=== PATIENT | female | born 1950 | race Caucasian/White ===

== ENCOUNTER 2016-04-06 23:17 | Emergency (ER) | payer MEDICARE ==
[2016-04-06] MEDS ORDERED: ONDANSETRON 4 MG/2 ML VIAL IVP STA (23:58)
[2016-04-06] MEDS ORDERED: SODIUM CHLORIDE 0.9% 1,000 ML IV STA (23:58)
[2016-04-07 00:17] LABS: Basophils % (A) 0 %; CH 32.8; CHCM 35.2; Eosinophils # (A) 0.1 k/uL (0-0.7); Eosinophils % (A) 1 %; HCT 39.5 % (34.0-46.0); HDW 2.59; HGB 13.4 gm/dL (11.4-16.0); Luc # (Auto) 0.17; Luc % (Auto) 3; Lymphocytes # (A) 1.2 k/uL (1.0-4.8); Lymphocytes % (A) 18 %; MCH 31.7 pg (25.0-35.0); MCHC 33.9 g/dL (31.0-37.0); MCV 93.5 fL (80.0-100.0); Mean Platelet Volume 7.2; Monocytes # (A) 0.5 k/uL (0-1.0); Monocytes % (A) 8 %; Neutrophils # (A) 4.6 k/uL (1.3-7.7); Neutrophils % (A) 70 %; RBC 4.22 m/uL (3.80-5.40); RDW 12.1 % (11.5-15.5); WBC 6.5 k/uL (3.8-10.6); WBC (Perox) 6.82
[2016-04-07 00:27] LABS: ALT 48 U/L (9-52); AST 45 U/L (14-36); Alkaline Phosphatase 113 U/L (38-126); Anion Gap 12 mmol/L; Blood Urea Nitrogen 14 mg/dL (7-17); Calcium 9.1 mg/dL (8.4-10.2); Carbon Dioxide 24 mmol/L (22-30); Chloride 105 mmol/L (98-107); Glucose 121 mg/dL (74-99); Non-African American GFR(MDRD) >60 (>60 ml/min/1.73 sqM); Sodium 141 mmol/L (137-145); Total Bilirubin 0.4 mg/dL (0.2-1.3); Total Protein 6.7 g/dL (6.3-8.2)
--- NOTE | 2016-04-07 00:27 | XR ---
EXAMINATION TYPE: XR chest 2V DATE OF EXAM: 04/07/2016 12:15 AM COMPARISON: NONE HISTORY: Syncope. Possible pneumonia. TECHNIQUE: Frontal and lateral views of the chest are obtained. FINDINGS: Heart and mediastinum are normal for age. Lungs are clear. Costophrenic angles are clear. There are no hilar masses. There are chest leads. Bony thorax is intact. Thoracic aorta is atheromato us. IMPRESSION: No active cardiopulmonary disease.
--- NOTE | 2016-04-07 00:28 | CT ---
EXAMINATION TYPE: CT brain wo con DATE OF EXAM: 04/07/2016 12:24 AM COMPARISON: NONE HISTORY: Near syncope CT DLP: 1144.70 mGycm Automated exposure control for dose reduction was used. FINDINGS: Ventricles and sulci are normal for age. There is no mass effect nor midline shift. There is no sign of intracranial hemorrhage. The calvarium is intact. IMPRESSION: Negative unenhanced head CT scan.
[2016-04-07 00:44] LABS: Appearance,Urine Clear (Clear); Bilirubin,Urine Negative (Negative); Glucose,Urine (UA) Negative (Negative); Ketones,Urine Negative (Negative); Leukocyte Esterase,Urine Negative (Negative); Nitrite,Urine Negative (Negative); PH, Urine 6.5 (5.0-8.0); Protein,Urine Negative (Negative); UA Billing (MACRO vs. MICRO) CHEM; Urobilinogen,Urine <2.0 mg/dL (<2.0)
[2016-04-07 00:49] LABS: Specific Gravity,Urine 1.002 (1.001-1.035)
--- NOTE | 2016-04-07 01:07 | ED ---
Dizziness HPI - General Chief Complaint: Dizziness Stated Complaint: Near Syncope Time Seen by Provider: 04/06/16 23:47 Source: patient, EMS Mode of arrival: EMS - History of Present Illness Initial Comments: She was sitting at home at 10:30 PM tonight watching TV she felt like a bit of a palpitations and she felt she was given a pass this feeling lasted for less than a minute and then it she did passed no chest pain no shortness of breath no pleuritic chest pain no nausea no vomiting no diaphoresis no headache no blurred vision, numbness of the review of system is unremarkable - Related Data Home Medications Medication Instructions Recorded Confirmed Aspirin EC [Ecotrin Low Dose] 81 mg PO HS 04/06/16 04/06/16 Ibuprofen [Advil] 200 mg PO DAILY PRN 04/06/16 04/06/16 Meclizine [Antivert] 12.5 mg PO TID PRN 04/06/16 04/06/16 Multivitamins, Thera [Multivitamin] 1 tab PO DAILY 04/06/16 04/06/16 Allergies Allergy/AdvReac Type Severity Reaction Status Date / Time Penicillins Allergy Rash/Hives Verified 04/06/16 23:48 Sulfa (Sulfonamide Allergy Rash/Hives Verified 04/06/16 23:48 Antibiotics) Review of Systems ROS Statement: Those systems with pertinent positive or pertinent negative responses have been documented in the HPI. ROS Other: All systems not noted in ROS Statement are negative. Past Medical History Past Medical History: Hyperlipidemia, Hypertension History of Any Multi-Drug Resistant Organisms: None Reported Additional Past Surgical History / Comment(s): D&C Past Psychological History: No Psychological Hx Reported Smoking Status: Never smoker Past Alcohol Use History: Rare Past Drug Use History: None Reported General Exam - General Exam Comments Initial Comments: General: The patient is awake and alert, in no distress, and does not appear acutely ill. GCS is 15 Skin: Skin is warm and dry and no rashes or lesions are noted. Eye: Pupils are equal, round and reactive to light, extra-ocular movements are intact; there is normal conjunctiva bilaterally. Ears, nose, mouth and throat: There are moist mucous membranes and no oral lesions. Neck: The neck is supple, there is no tenderness or JVD. Cardiovascular: There is a regular rate and rhythm. No murmur, rub or gallop is appreciated. Respiratory: To auscultation bilateral, no wheezing no rhonchi no distress respiratory bolaños noticed Gastrointestinal: Soft, non-distended, non-tender abdomen without masses or organomegaly noted. There is no rebound or guarding present. Bowel sounds are unremarkable. Back: There is no tenderness to palpation in the midline. There is no obvious deformity. Musculoskeletal: Normal ROM, no tenderness, There is no pedal edema. There is no calf tenderness or swelling. No cords were appreciated. Neurological: CN II-XII intact, Cranial nerves III through XII are intact. There are no obvious motor or sensory deficits. Coordination appears grossly intact. Speech is normal. Psychiatric: Cooperative, appropriate mood & affect, normal judgment. Course Vital Signs 04/06/16 04/06/16 04/07/16 23:34 23:51 00:30 Temperature 99.3 F 99.1 F Pulse Rate 103 H 105 H 102 H Respiratory 18 18 16 Rate Blood Pressure 182/87 157/74 179/89 O2 Sat by Pulse 98 99 96 Oximetry 04/07/16 04/07/16 01:58 03:22 Temperature 98.0 F 99.0 F Pulse Rate 101 H 96 Respiratory 16 18 Rate Blood Pressure 154/67 154/68 O2 Sat by Pulse 96 97 Oximetry He was reassessed at 4 AM, her CBC, CMP, troponin, EKG, urinalysis, chest x-ray , head CT or. SHE HAS NO HEADACHES NO CHEST PAIN NO SHORTNESS OF BREATH NO PRESYNCOPAL EPISODES AND SHE WANTS TO GO HOME EKG Findings - EKG Comments: EKG Findings:: EKG sinus tachycardia heart rate is 107 RI interval is 166 QRS duration is 86 QT/QTc is 348/464 review of this EKG reveals no ST elevation or ST depression Medical Decision Making - Lab Data Result diagrams: 04/06/16 23:45 04/06/16 23:45 Lab Results 04/06/16 04/06/16 04/06/16 Range/Units 23:43 23:45 23:45 WBC 6.5 (3.8-10.6) k/uL RBC 4.22 (3.80-5.40) m/uL Hgb 13.4 (11.4-16.0) gm/dL Hct 39.5 (34.0-46.0) % MCV 93.5 (80.0-100.0) fL MCH 31.7 (25.0-35.0) pg MCHC 33.9 (31.0-37.0) g/dL RDW 12.1 (11.5-15.5) % Plt Count 213 (150-450) k/uL Neutrophils % 70 % Lymphocytes % 18 % Monocytes % 8 % Eosinophils % 1 % Basophils % 0 % Neutrophils # 4.6 (1.3-7.7) k/uL Lymphocytes # 1.2 (1.0-4.8) k/uL Monocytes # 0.5 (0-1.0) k/uL Eosinophils # 0.1 (0-0.7) k/uL Basophils # 0.0 (0-0.2) k/uL Sodium 141 (137-145) mmol/L Potassium 4.0 (3.5-5.1) mmol/L Chloride 105 (98-107) mmol/L Carbon Dioxide 24 (22-30) mmol/L Anion Gap 12 mmol/L BUN 14 (7-17) mg/dL Creatinine 0.80 (0.52-1.04) mg/dL Est GFR (MDRD) Af Amer >60 (>60 ml/min/1.73 sqM) Est GFR (MDRD) Non-Af >60 (>60 ml/min/1.73 sqM) Glucose 121 H (74-99) mg/dL Calcium 9.1 (8.4-10.2) mg/dL Total Bilirubin 0.4 (0.2-1.3) mg/dL AST 45 H (14-36) U/L ALT 48 (9-52) U/L Alkaline Phosphatase 113 (38-126) U/L Troponin I (0.000-0.034) ng/mL Total Protein 6.7 (6.3-8.2) g/dL Albumin 4.1 (3.5-5.0) g/dL Urine Color Colorless Urine Appearance Clear (Clear) Urine pH 6.5 (5.0-8.0) Ur Specific [place] 1.002 (1.001-1.035) Urine Protein Negative (Negative) Urine Glucose (UA) Negative (Negative) Urine Ketones Negative (Negative) Urine Blood Negative (Negative) Urine Nitrate Negative (Negative) Urine Bilirubin Negative (Negative) Urine Urobilinogen <2.0 (<2.0) mg/dL Ur Leukocyte Esterase Negative (Negative) 04/06/16 Range/Units 23:45 WBC (3.8-10.6) k/uL RBC (3.80-5.40) m/uL Hgb (11.4-16.0) gm/dL Hct (34.0-46.0) % MCV (80.0-100.0) fL MCH (25.0-35.0) pg MCHC (31.0-37.0) g/dL RDW (11.5-15.5) % Plt Count (150-450) k/uL Neutrophils % % Lymphocytes % % Monocytes % % Eosinophils % % Basophils % % Neutrophils # (1.3-7.7) k/uL Lymphocytes # (1.0-4.8) k/uL Monocytes # (0-1.0) k/uL Eosinophils # (0-0.7) k/uL Basophils # (0-0.2) k/uL Sodium (137-145) mmol/L Potassium (3.5-5.1) mmol/L Chloride (98-107) mmol/L Carbon Dioxide (22-30) mmol/L Anion Gap mmol/L BUN (7-17) mg/dL Creatinine (0.52-1.04) mg/dL Est GFR (MDRD) Af Amer (>60 ml/min/1.73 sqM) Est GFR (MDRD) Non-Af (>60 ml/min/1.73 sqM) Glucose (74-99) mg/dL Calcium (8.4-10.2) mg/dL Total Bilirubin (0.2-1.3) mg/dL AST (14-36) U/L ALT (9-52) U/L Alkaline Phosphatase (38-126) U/L Troponin I <0.012 (0.000-0.034) ng/mL Total Protein (6.3-8.2) g/dL Albumin (3.5-5.0) g/dL Urine Color Urine Appearance (Clear) Urine pH (5.0-8.0) Ur Specific [place] (1.001-1.035) Urine Protein (Negative) Urine Glucose (UA) (Negative) Urine Ketones (Negative) Urine Blood (Negative) Urine Nitrate (Negative) Urine Bilirubin (Negative) Urine Urobilinogen (<2.0) mg/dL Ur Leukocyte Esterase (Negative) Disposition Clinical Impression: Pre-syncope Disposition: HOME SELF-CARE Condition: Good Instructions: Dizziness (ED) Referrals: Noam Hernandez MD [Primary Care Provider] - 1-2 days
[2016-04-07 04:22] VITALS: BP 145/63; PULSE 92; RESP 20; TEMP 97.3
== END 2016-04-07 04:23 | disposition home or self-care (01) ==
LOC: EC 23:17
DX: R55 Syncope and collapse (principal); Z79.82 Long term (current) use of aspirin; Z88.0 Allergy status to penicillin; Z88.2 Allergy status to sulfonamides
CPT/HCPCS: 36415; 70450; 71020; 80053; 81003; 84484; 85025; 93005; 96360; 96361; 99285

== ENCOUNTER → 2016-06-23 | Outpatient (CLI) | payer MEDICARE ==
--- NOTE | 2016-06-24 13:24 | MM ---
Reason for exam: screening (asymptomatic). Last mammogram was performed 1 year ago. History: Patient is postmenopausal and is nulliparous. Benign left US cyst aspiration of the left breast, June 06, 2010. Benign excisional biopsy of the left breast, April 05, 1998. Cyst aspiration of the left breast. Took estrogen for 1 year beginning at age 46. Took progesterone for 1 year beginning at age 46. Physical Findings: A clinical breast exam by your physician is recommended on an annual basis and results should be correlated with mammographic findings. MG 3D Screening Mammo W/Cad Bilateral CC and MLO view(s) were taken. Prior study comparison: June 21, 2015, bilateral MG 3d screening mammo w/cad. June 19, 2014, bilateral MG screening mammo w CAD. There are scattered fibroglandular densities. No significant changes when compared with prior studies. ASSESSMENT: Benign, BI-RAD 2 RECOMMENDATION: Routine screening mammogram of both breasts in 1 year.
== END | disposition home or self-care (01) ==
LOC: RADMAMWWP 08:11
PROVIDERS: ATTEND Family Medicine
DX: Z12.31 Encounter for screening mammogram for malignant neoplasm of breast (principal)
CPT/HCPCS: 77063; G0202

== ENCOUNTER → 2016-11-02 | Outpatient (CLI) | payer MEDICARE ==
--- NOTE | 2016-11-02 10:18 | US ---
EXAMINATION TYPE: US abdomen complete DATE OF EXAM: 11/02/2016 COMPARISON: NONE CLINICAL HISTORY: Abd Pain, R10.84, [id number]. Epigastric pain x 2 months EXAM MEASUREMENTS: Liver Length: 13.7 cm Gallbladder Wall: 0.2 cm CBD: 0.7 cm Spleen: 9.6 cm Right Kidney: 10.2 x 3.9 x 4.9 cm Left Kidney: 9.9 x 4.8 x 4.6 cm Pancreas: wnl Liver: wnl Gallbladder: 9mm non-mobile gallstone near neck Evidence for sonographic Mehta's sign: No CBD: wnl Spleen: wnl Right Kidney: wnl Left Kidney: wnl Upper IVC: wnl Abd Aorta: wnl, wall calcifications visualized IMPRESSION: 1. 9 mm hyperechoic focus within the gallbladder. Differential diagnosis includes nonmobile stone willi chidi cholesterol polyp.
== END | disposition home or self-care (01) ==
LOC: RADUSWWP 09:32
PROVIDERS: ATTEND Family Medicine
DX: R93.2 Abnormal findings on diagnostic imaging of liver and biliary tract (principal); R10.84 Generalized abdominal pain
CPT/HCPCS: 76700

== ENCOUNTER → 2017-03-23 | Outpatient (CLI) | payer MEDICARE ==
--- NOTE | 2017-03-23 12:15 | NM ---
EXAMINATION TYPE: NM stress cardiolite complete DATE OF EXAM: 03/23/2017 COMPARISON: NONE HISTORY: Atypical chest pain TECHNIQUE: After the intravenous administration of 10.5 mCi Tc 99m Sestamibi - Rest images obtained 45 minutes post injection. The patient exercised using a PARISH protocol and 1 minute prior to peak exercise was injected with 28.6 mCi Tc 99m Sestamibi - Stress images obtained 10 minutes post injecti on. FINDINGS: Targeted heart rate was achieved during performance of the study. Review of stress and rest SPECT rita ges demonstrates no distinct perfusion abnormality. Gated analysis shows normal wall motion with an estimated left ventricular ejection fraction of 69 %. IMPRESSION: No scintigraphic evidence for reversible ischemia
--- NOTE | 2017-03-23 12:54 | EST ---
EXERCISE STRESS DATE OF SERVICE: 03/23/2017 AGE: 66 SEX: Female HT: 5'4" WT: 184 PROTOCOL: Neeraj Cardiolite STAGE: I DURATION OF EXERCISE: 5:16 HEART RATE REST: 69 BLOOD PRESSURE REST: 140/82 MAXIMUM HEART RATE ACHIEVED: 140 MAXIMUM BLOOD PRESSURE: 205/80 85% MPHR: 129 100% MPHR: 152 METS: 7.1 INDICATIONS: Chest pain. CLINICAL INFORMATION: Baseline EKG revealed normal sinus rhythm without significant ST-T changes. Patient walked for 5 minutes 16 seconds, achieved a maximal heart rate of 140 beats per minute which is more than 85% of predicted maximal. She developed some fatigue and shortness of breath but did not have any angina. There was no arrhythmia. By EKG criteria, this is a negative stress test with nonspecific upsloping ST-segment changes without any symptoms of angina or any arrhythmia. The nuclear scan results which are more pertinent, will be reported by the radiologist. FINAL IMPRESSION: Limited exercise capacity with a negative stress test by EKG criteria with nonspecific upsloping ST-segment changes and no angina or arrhythmia. The nuclear scan results, which are more pertinent, will be reported by the radiologist. MMODL / IJN: [id number] /
== END | disposition home or self-care (01) ==
LOC: RADNMMAIN 08:39
PROVIDERS: ATTEND Family Medicine
DX: R07.89 Other chest pain (principal)
CPT/HCPCS: 93017; 78452; A9500

== ENCOUNTER → 2017-04-14 | Outpatient (CLI) | payer MEDICARE ==
--- NOTE | 2017-04-14 15:45 | XR ---
EXAMINATION TYPE: XR chest 2V DATE OF EXAM: 04/14/2017 COMPARISON: Prior chest x-ray 04/07/2016 HISTORY: Cough TECHNIQUE: Frontal and lateral views of the chest are obtained. FINDINGS: There is no focal air space opacity, pleural effusion, or pneumothorax seen. The cardiac silhouette size is within normal limits and stable. Patient is rotated. The aorta is dense. The osse ous structures are intact. IMPRESSION: No acute cardiopulmonary process.
== END | disposition home or self-care (01) ==
LOC: RADXRMAIN 14:03
PROVIDERS: ATTEND Family Medicine
DX: R05 Cough (principal)
CPT/HCPCS: 71046

== ENCOUNTER → 2017-05-12 | Outpatient (CLI) | payer MEDICARE ==
[2017-05-12 18:32] LABS: Anion Gap 11 mmol/L; Blood Urea Nitrogen 15 mg/dL (7-17); Calcium 9.6 mg/dL (8.4-10.2); Carbon Dioxide 27 mmol/L (22-30); Chloride 103 mmol/L (98-107); Glucose 97 mg/dL (74-99); Potassium 4.2 mmol/L (3.5-5.1); Sodium 141 mmol/L (137-145)
== END | disposition home or self-care (01) ==
LOC: LABMAIN 18:04
PROVIDERS: ATTEND Family Medicine
DX: I10 Essential (primary) hypertension (principal)
CPT/HCPCS: 36415; 80048

== ENCOUNTER → 2017-06-08 | Outpatient (CLI) | payer MEDICARE ==
[2017-06-08 10:01] LABS: ALT 45 U/L (9-52); AST 41 U/L (14-36); Alkaline Phosphatase 110 U/L (38-126); Anion Gap 10 mmol/L; Blood Urea Nitrogen 12 mg/dL (7-17); Calcium 9.4 mg/dL (8.4-10.2); Carbon Dioxide 27 mmol/L (22-30); Chloride 102 mmol/L (98-107); Cholesterol 241 mg/dL (<200); Glucose 95 mg/dL (74-99); HDL Cholesterol 85 mg/dL (40-60); LDL Cholesterol,Calculated 139 mg/dL (0-99); Potassium 3.8 mmol/L (3.5-5.1); Sodium 139 mmol/L (137-145); Total Bilirubin 0.4 mg/dL (0.2-1.3); Total Protein 6.7 g/dL (6.3-8.2); Triglycerides 84 mg/dL (<150)
[2017-06-08 10:15] LABS: Basophils % (A) 1 %; Eosinophils % (A) 1 %; HCT 38.5 % (34.0-46.0); HGB 13.5 gm/dL (11.4-16.0); Lymphocytes # (A) 1.1 k/uL (1.0-4.8); Lymphocytes % (A) 30 %; MCH 32.4 pg (25.0-35.0); MCHC 35.1 g/dL (31.0-37.0); MCV 92.2 fL (80.0-100.0); Mean Platelet Volume 6.8; Monocytes # (A) 0.3 k/uL (0-1.0); Monocytes % (A) 8 %; Neutrophils % (A) 57 %; Platelet Count 212 k/uL (150-450); RBC 4.17 m/uL (3.80-5.40); RDW 12.2 % (11.5-15.5); WBC 3.6 k/uL (3.8-10.6)
== END | disposition home or self-care (01) ==
LOC: LABWHC1 08:56
PROVIDERS: ATTEND Family Medicine
DX: E78.5 Hyperlipidemia, unspecified (principal); I10 Essential (primary) hypertension
CPT/HCPCS: 36415; 80053; 80061; 85025

== ENCOUNTER 2018-02-28 22:11 | Inpatient (IN) | payer MEDICARE ==
[2018-02-28 22:57] LABS: Basophils % (A) 0 %; Eosinophils # (A) 0.1 k/uL (0-0.7); Eosinophils % (A) 1 %; HCT 37.4 % (34.0-46.0); HGB 12.7 gm/dL (11.4-16.0); Lymphocytes # (A) 2.1 k/uL (1.0-4.8); Lymphocytes % (A) 30 %; MCH 31.9 pg (25.0-35.0); MCV 93.9 fL (80.0-100.0); Mean Platelet Volume 6.5; Monocytes # (A) 0.5 k/uL (0-1.0); Monocytes % (A) 7 %; Neutrophils # (A) 4.1 k/uL (1.3-7.7); Neutrophils % (A) 57 %; Platelet Count 284 k/uL (150-450); RBC 3.98 m/uL (3.80-5.40); RDW 12.3 % (11.5-15.5); WBC 7.1 k/uL (3.8-10.6)
[2018-02-28 23:02] LABS: Partial Thromboplastin Time 23.2 sec (22.0-30.0); Prothrombin Time 9.6 sec (9.0-12.0)
[2018-02-28 23:03] LABS: ALT 40 U/L (9-52); AST 31 U/L (14-36); Albumin 4.3 g/dL (3.5-5.0); Alkaline Phosphatase 127 U/L (38-126); Anion Gap 12 mmol/L; Blood Urea Nitrogen 12 mg/dL (7-17); Calcium 9.7 mg/dL (8.4-10.2); Carbon Dioxide 23 mmol/L (22-30); Chloride 104 mmol/L (98-107); Glucose 117 mg/dL (74-99); Sodium 139 mmol/L (137-145); Total Bilirubin 0.3 mg/dL (0.2-1.3); Total Protein 7.4 g/dL (6.3-8.2)
--- NOTE | 2018-02-28 23:36 | CT ---
EXAM: CT Head Without Intravenous Contrast CLINICAL HISTORY: ITS.REASON CT Reason: Pain TECHNIQUE: Axial computed tomography images of the head/brain without intravenous contrast. CTDI is 54 mGy and DLP is 354 mGy-cm. This CT exam was performed using one or more of the following dose reduction techniques: automated exposure control, adjustment of the mA and/or kV according to patient size, and/or use of iterative reconstruction technique. COMPARISON: No relevant prior studies available. FINDINGS: Brain: No hemorrhage. No edema. Ventricles: Unremarkable. No ventriculomegaly. Bones/joints: No acute fracture. Soft tissues: Unremarkable. Sinuses: No fluid levels. Mastoid air cells: Unremarkable as visualized. No mastoid effusion. IMPRESSION: No acute intracranial findings
--- NOTE | 2018-02-28 23:42 | ED ---
General Adult HPI - General Source: EMS Mode of arrival: EMS Limitations: no limitations <Jennifer Davalos - Last Filed: 03/01/18 03:58> <Rachell Fallon - Last Filed: 03/02/18 02:46> - General Chief complaint: Neuro Symptoms/Deficit Stated complaint: Hypertension, Weakness - History of Present Illness Initial comments: 67-year-old female past medical history of hypertension and HLD presenting today for chief complaint of left hand tingling and speech changes x 3 hours. Patient states that around 7:00 PM she states she began noticing tingling in her hand, shortly after she began noticing she had difficulty with speech, she states he felt as though her speech was slower than normal. Patient states that this was occurring while speaking to EMS. Patient states that after she finished the phone call with EMS all symptoms resolved. Upon arrival patient denies any current symptoms. Patient denies any ataxia, muscle weakness, visual changes, facial asymmetry, difficulty swallowing, sensation differences, paresthesias, chest pain, shortness of breath, headache or dizziness, nausea, vomiting. Patient denies any recent trauma to the head. Patient denies any symptoms prior to today. Patient denies any fever, chills, confusion, agitation. Remainder of ROS negative, upon arrival patient's blood pressure elevated, pt well appearing AAOx4. NIH 0. (Jennifer Davalos) - Related Data Home Medications Medication Instructions Recorded Confirmed Aspirin EC [Ecotrin Low Dose] 81 mg PO HS 04/06/16 02/28/18 Multivitamins, Thera [Multivitamin] 1 tab PO DAILY 04/06/16 02/28/18 Atorvastatin Calcium [Lipitor] 10 mg PO HS 02/28/18 02/28/18 Azithromycin [Zithromax Z-pack] See Taper PO DAILY 02/28/18 02/28/18 Losartan [Cozaar] 50 mg PO AC-SUPPER 02/28/18 02/28/18 amLODIPine [Norvasc] 2.5 mg PO AC-SUPPER 02/28/18 02/28/18 Allergies Allergy/AdvReac Type Severity Reaction Status Date / Time Penicillins Allergy Rash/Hives Verified 02/28/18 22:48 Sulfa (Sulfonamide Allergy Rash/Hives Verified 02/28/18 22:48 Antibiotics) Review of Systems ROS Other: All systems not noted in ROS Statement are negative. Constitutional: Denies: fever, chills, night sweats Eyes: Denies: eye pain, vision change ENT: Denies: ear pain, throat pain Respiratory: Denies: cough, dyspnea, wheezes, hemoptysis, stridor Cardiovascular: Denies: chest pain, palpitations Endocrine: Denies: fatigue Gastrointestinal: Denies: abdominal pain, nausea, vomiting, diarrhea, constipation, hematemesis Genitourinary: Denies: urgency, dysuria, frequency, hematuria, discharge Skin: Denies: rash, lesions Neurological: Reports: paresthesias (of the left hand), other (speech changes). Denies: headache, weakness, numbness, confusion, abnormal gait <Jennifer Davalos - Last Filed: 03/01/18 03:58> ROS Other: All systems not noted in ROS Statement are negative. <Rachell Fallon P - Last Filed: 03/02/18 02:46> ROS Statement: Those systems with pertinent positive or pertinent negative responses have been documented in the HPI. Past Medical History Past Medical History: Hyperlipidemia, Hypertension History of Any Multi-Drug Resistant Organisms: None Reported Additional Past Surgical History / Comment(s): D&C Past Psychological History: No Psychological Hx Reported Smoking Status: Never smoker Past Alcohol Use History: Rare Past Drug Use History: None Reported <Jennifer Davalos - Last Filed: 03/01/18 03:58> - Past Family History Mother Additional Family Medical History / Comment(s): alzheimers, CABG Father Additional Family Medical History / Comment(s): smoker, alcohol. <Rachell Fallon P - Last Filed: 03/02/18 02:46> General Exam Limitations: no limitations <Jennifer Davalos - Last Filed: 03/01/18 03:58> <Rachell Fallon P - Last Filed: 03/02/18 02:46> - General Exam Comments Initial Comments: General: The patient is awake and alert, in no distress, and does not appear acutely ill. Eye: Pupils are equal, round and reactive to light, extra-ocular movements are intact. No nystagmus. There is normal conjunctiva bilaterally. No signs of icterus. Ears, nose, mouth and throat: There are moist mucous membranes and no oral lesions. Neck: The neck is supple, there is no tenderness or JVD. No carotid artery bruits. Cardiovascular: There is a regular rate and rhythm. No murmur, rub or gallop is appreciated. Respiratory: Lungs are clear to auscultation, respirations are non-labored, breath sounds are equal. No wheezes, stridor, rales, or rhonchi. Gastrointestinal: Soft, non-distended, non-tender abdomen without masses or organomegaly noted. There is no rebound or guarding present. Musculoskeletal: Normal ROM, no tenderness. Strength 5/5. Sensation intact. Radial pulses equal bilaterally 2+. Neurological: A&O x 3. CN II-XII intact, memory intact to immediately, intermediate and custodial recall. Able to follow simple verbal. Able to name a common object (pen). High quality, labial (pa) and lingual (la) speech. Low quality posterior pharynx/larynx (ga) voice sounds. Able to express general knowledge (days in a week). No hemineglect or inattention noted. Finger agnosia (-) and spatially oriented (identified L index finger touched R shoulder with L index finger). . Light touch and temperature sensation present over the face, chest, abdomen, back, UE bilaterally, and LE bilaterally. Able to localize point during point localization b/l and extinction. No visible bulk atrophy, hypertrophy, fasciculations, or myoclonus of the UE or LE b/l. Full PROM in UE and LE b/l. Bilateral muscle strength 5/5 for the following muscles: deltoid, biceps, triceps, brachioradialis, wrist extensors/flexor, hip flexor, hip abductors/adductors, hamstrings, quadriceps, feet dorsiflexors/plantar flexors. Finger to nose, finger to the examiners finger, and heel to stubbs coordinated and accurate b/l. Coordinated and even demonstration of hand flip, finger to thumb, and toe tap b/l. (-) pronator drift. No nuchal rigidity. (-) Brudzinskis and Kernig signs.. Skin: Skin is warm and dry and no rashes or lesions are noted. Lower extremity edema Psychiatric: Cooperative, appropriate mood & affect, normal judgment. (Jennifer Davalos L) Course <Jennifer Davalos - Last Filed: 03/01/18 03:58> <Rachell Fallon - Last Filed: 03/02/18 02:46> Vital Signs 02/28/18 02/28/18 02/28/18 22:16 22:17 22:30 Temperature 98.3 F Pulse Rate 117 H Pulse Rate [ Publications Inspector ] Respiratory 20 16 Rate Blood Pressure 154/94 154/93 Blood Pressure [Right Arm] O2 Sat by Pulse 98 97 Oximetry 03/01/18 03/01/18 03/01/18 00:00 00:21 02:02 Temperature 98.1 F Pulse Rate 106 H 101 H Pulse Rate [ 99 Publications Inspector ] Respiratory 16 16 18 Rate Blood Pressure 168/106 160/89 Blood Pressure 164/83 [Right Arm] O2 Sat by Pulse 98 98 97 Oximetry 03/01/18 02:08 Temperature 98.3 F Pulse Rate Pulse Rate [ 102 H Publications Inspector ] Respiratory 17 Rate Blood Pressure Blood Pressure 144/83 [Right Arm] O2 Sat by Pulse 98 Oximetry - Reevaluation(s) Reevaluation #1: Repeat neurological exam, no focal neurological deficits. Patient denies any current symptoms. She given [address] following [address] without contrast. 03/01/18 (Jennifer Davalos) EKG Findings - EKG Comments: EKG Findings:: A 12-lead EKG was performed and shows the following: Rate is 100 bpm, and rhythm is normal sinus. There are normal QRS complexes and normal R- wave progression. ST segments have no elevation or depression, and [place] segments appear normal. [place] interval 166 most seconds, QRS duration 82 ms, QT/QTC 350/ 451 ms. Interpretted by [facility] [place] and [place]. Fallon <Jennifer Davalos - Last Filed: 03/01/18 03:58> Medical Decision Making - Lab Data Result diagrams: 02/28/18 22:35 02/28/18 22:35 <Jennifer Davalos - Last Filed: 03/01/18 03:58> - Lab Data Result diagrams: 02/28/18 22:35 02/28/18 22:35 <Rachell Fallon - Last Filed: 03/02/18 02:46> - Medical Decision Making 67-year-old presenting with complaints of history of difficulty speech and paresthesias of the left upper extremity concerning for TIA. NIH 0. Denies symptoms prior to arrival, stating they resolved about 1 hour ago. No focal neurological deficits on exam. Regular rhythm/rate. No carotid artery bruits. CT without contrast obtained, negative for acute intracranial process. Laboratory studies unremarkable. EKG within normal limits. Patient's blood pressure elevated upon arrival, improvement throughout the duration of visit. CTA obtained revealing possible occlusion of the posterior cerebral artery, stenosis versus occlusion of the proximal basilar. Pt given 325 mg ASA. Pt was evaluted by Dr. Hubbard. Stroke neurologist consulted at [facility] who spoke with attending physician Dr. Rachell Fallon. At this time given no neurosurgical intervention recommended/warranted. They recommended admission at facility to medicine and neurology consult. Dr. Sosa accepted patient. Neurology consulted. Pt agreeable with admission. (Jennifer Davalos) I personally saw and examined the patient. Patient with no focal neurologic deficits. I did discuss patient care with the stroke neurologist at [facility] who states that the basilar artery stenosis or occlusion is not consistent with the patient's presenting complaint, he would recommend aspirin, Plavix and admission to our hospital for evaluation by neurology. He doesn't feel the patient warrants any intervention therefore is stable to remain at this facility rather than be transferred. Patient care was discussed with Dr. Sosa of the [facility] who accepts the admission. Admission orders placed. (Rcahell Fallon) - Lab Data Lab Results 02/28/18 02/28/18 02/28/18 Range/Units 22:35 22:35 22:35 WBC 7.1 (3.8-10.6) k/uL RBC 3.98 (3.80-5.40) m/uL Hgb 12.7 (11.4-16.0) gm/dL Hct 37.4 (34.0-46.0) % MCV 93.9 (80.0-100.0) fL MCH 31.9 (25.0-35.0) pg MCHC 34.0 (31.0-37.0) g/dL RDW 12.3 (11.5-15.5) % Plt Count 284 (150-450) k/uL Neutrophils % 57 % Lymphocytes % 30 % Monocytes % 7 % Eosinophils % 1 % Basophils % 0 % Neutrophils # 4.1 (1.3-7.7) k/uL Lymphocytes # 2.1 (1.0-4.8) k/uL Monocytes # 0.5 (0-1.0) k/uL Eosinophils # 0.1 (0-0.7) k/uL Basophils # 0.0 (0-0.2) k/uL PT 9.6 (9.0-12.0) sec INR 1.0 (<1.2) APTT 23.2 (22.0-30.0) sec Sodium 139 (137-145) mmol/L Potassium 4.0 (3.5-5.1) mmol/L Chloride 104 (98-107) mmol/L Carbon Dioxide 23 (22-30) mmol/L Anion Gap 12 mmol/L BUN 12 (7-17) mg/dL Creatinine 0.70 (0.52-1.04) mg/dL Est GFR (CKD-EPI)AfAm >90 (>60 ml/min/1.73 sqM) Est GFR (CKD-EPI)NonAf 89 (>60 ml/min/1.73 sqM) Glucose 117 H (74-99) mg/dL Calcium 9.7 (8.4-10.2) mg/dL Total Bilirubin 0.3 (0.2-1.3) mg/dL AST 31 (14-36) U/L ALT 40 (9-52) U/L Alkaline Phosphatase 127 H (38-126) U/L Troponin I (0.000-0.034) ng/mL Total Protein 7.4 (6.3-8.2) g/dL Albumin 4.3 (3.5-5.0) g/dL 02/28/18 Range/Units 22:35 WBC (3.8-10.6) k/uL RBC (3.80-5.40) m/uL Hgb (11.4-16.0) gm/dL Hct (34.0-46.0) % MCV (80.0-100.0) fL MCH (25.0-35.0) pg MCHC (31.0-37.0) g/dL RDW (11.5-15.5) % Plt Count (150-450) k/uL Neutrophils % % Lymphocytes % % Monocytes % % Eosinophils % % Basophils % % Neutrophils # (1.3-7.7) k/uL Lymphocytes # (1.0-4.8) k/uL Monocytes # (0-1.0) k/uL Eosinophils # (0-0.7) k/uL Basophils # (0-0.2) k/uL PT (9.0-12.0) sec INR (<1.2) APTT (22.0-30.0) sec Sodium (137-145) mmol/L Potassium (3.5-5.1) mmol/L Chloride (98-107) mmol/L Carbon Dioxide (22-30) mmol/L Anion Gap mmol/L BUN (7-17) mg/dL Creatinine (0.52-1.04) mg/dL Est GFR (CKD-EPI)AfAm (>60 ml/min/1.73 sqM) Est GFR (CKD-EPI)NonAf (>60 ml/min/1.73 sqM) Glucose (74-99) mg/dL Calcium (8.4-10.2) mg/dL Total Bilirubin (0.2-1.3) mg/dL AST (14-36) U/L ALT (9-52) U/L Alkaline Phosphatase (38-126) U/L Troponin I <0.012 (0.000-0.034) ng/mL Total Protein (6.3-8.2) g/dL Albumin (3.5-5.0) g/dL Disposition Is patient prescribed a controlled substance at d/c from ED?: No Time of Disposition: 01:39 Decision to Admit Reason: Admit from EC Decision Date: 03/01/18 Decision Time: 01:39 <Jennifer Davalos L - Last Filed: 03/01/18 03:58> <Rachell Fallon P - Last Filed: 03/02/18 02:46> Clinical Impression: TIA (transient ischemic attack), Paresthesia of left upper extremity, Spell of change in speech Disposition: ADMITTED IP TO THIS [facility] Condition: Stable
[2018-03-01] MEDS: SODIUM CHLORIDE 0.9% 1,000 ML IV SCH ×2 (00:20→21:58)
--- NOTE | 2018-03-01 00:25 | CT ---
EXAM: CT Angiography Head With Intravenous Contrast CLINICAL HISTORY: ITS.REASON CT Reason: TIA symptoms TECHNIQUE: Axial computed tomographic angiography images of the head with intravenous contrast using CT angiography protocol. CTDI is 34 mGy and DLP is 243 mGy-cm. This CT exam was performed using one or more of the following dose reduction techniques: automated exposure control, adjustment of the mA and/or kV according to patient size, and/or use of iterative reconstruction technique. 3D reconstructed images were created and reviewed. COMPARISON: No relevant prior studies available. FINDINGS: Right internal carotid artery: No acute findings. Intracranial segment is patent with no significant stenosis. No aneurysm. Right anterior cerebral artery: Unremarkable. No occlusion or significant stenosis. No aneurysm. Right middle cerebral artery: Unremarkable. No occlusion or significant stenosis. No aneurysm. Right posterior cerebral artery: Unremarkable. No occlusion or significant stenosis. No aneurysm. Right vertebral artery: Unremarkable as visualized. Left internal carotid artery: No acute findings. Intracranial segment is patent with no significant stenosis. No aneurysm. Left anterior cerebral artery: Unremarkable. No occlusion or significant stenosis. No aneurysm. Left middle cerebral artery: Unremarkable. No occlusion or significant stenosis. No aneurysm. Left posterior cerebral artery: Possible occlusion of the distal left posterior cerebral artery. No aneurysm. Left vertebral artery: Unremarkable as visualized. Basilar artery: There is severe stenosis versus short segment occlusion of the proximal basilar artery. No aneurysm. IMPRESSION: 1. 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 2. Possible occlusion of the distal left posterior cerebral artery. Evaluation limited by venous contamination. EXAM: CT Angiography Neck With Intravenous Contrast CLINICAL HISTORY: ITS.REASON CT Reason: TIA symptoms TECHNIQUE: Axial computed tomographic angiography images of the neck with intravenous contrast using CT angiography protocol. CTDI is 41 mGy and DLP is 453 mGy-cm. This CT exam was performed using one or more of the following dose reduction techniques: automated exposure control, adjustment of the mA and/or kV according to patient size, and/or use of iterative reconstruction technique. 3D reconstructed images were created and reviewed. COMPARISON: No relevant prior studies available. FINDINGS: VASCULATURE: Right common carotid artery: Unremarkable. No significant stenosis. No dissection or occlusion. Right internal carotid artery: Unremarkable. Extracranial segment is patent with no significant stenosis. No dissection or occlusion. Right external carotid artery: Unremarkable. No occlusion. Right vertebral artery: Unremarkable. No significant stenosis. No dissection or occlusion. Left common carotid artery: Unremarkable. No significant stenosis. No dissection or occlusion. Left internal carotid artery: Unremarkable. Extracranial segment is patent with no significant stenosis. No dissection or occlusion. Left external carotid artery: Unremarkable. No occlusion. Left vertebral artery: Unremarkable. No significant stenosis. No dissection or occlusion. NECK: Bones/joints: No acute fracture. No dislocation. Soft tissues: Unremarkable as visualized. No mass. CAROTID STENOSIS REFERENCE USING NASCET CRITERIA: % ICA stenosis = (1 - narrowest ICA diameter/diameter of distal cervical ICA) x 100. Mild - <50% stenosis. Moderate - 50-69% stenosis. Severe - 70-94% stenosis. Near occlusion - 95-99% stenosis. Occluded - 100% stenosis. IMPRESSION: Normal neck CTA.
[2018-03-01] MEDS ORDERED: ASPIRIN 325 MG TAB PO STA (00:31)
[2018-03-01 02:55] VITALS: BMI 32.8
--- NOTE | 2018-03-01 06:51 | P.HPIM ---
History of Present Illness H&P Date: 03/01/18 Chief Complaint: Slurred speech and left hand tingling The patient is a [id number] 67-year-old female with a past medical history of hypertension and hyperlipidemia presenting today for chief complaint of left hand tingling and speech changes. Patient states that around 9:30 PM she states she began noticing tingling in her hand, shortly after she began noticing she had difficulty with speech, she states he felt as though her speech was slower than normal. Patient states that this was occurring while speaking to EMS, but that her symptoms resolved within 10 minutes while on phone with EMS. Upon arrival patient denies any current symptoms. Patient denies any ataxia, muscle weakness, visual changes, facial asymmetry, difficulty swallowing, sensation differences, paresthesias, chest pain, shortness of breath, headache or dizziness, nausea, vomiting. Patient denies any recent trauma to the head. Patient denies any symptoms prior to today. Patient denies any fever, chills, confusion, agitation. Remainder of ROS negative, upon arrival patient's blood pressure elevated, pt well appearing AAOx4. NIH 0. Patient denies any previous similar symptoms of slurred speech but does report left paresthesias in her hand which she attributes to poor sleep mechanics. In the ER the patient had a CT of her head that was negative for any acute intracranial pathology subsequent CT angiogram of the neck indicated severe stenosis versus short segment occlusion of the proximal basilar artery with possible occlusion of the distal left MANAGER CAR. EKH indicated sinus mechanism and troponins were negative. Patient last had a Cardiolite stress test in February of last year which was negative for any worsening ischemia. Patient was started on dual antiplatelet therapy recommended for admission Review of Systems Pertinent positives per HPI all other review of systems otherwise negative Past Medical History Past Medical History: Hyperlipidemia, Hypertension Additional Past Medical History / Comment(s): TIA (03/01/18) History of Any Multi-Drug Resistant Organisms: None Reported Additional Past Surgical History / Comment(s): D&C Past Anesthesia/Blood Transfusion Reactions: No Reported Reaction Additional Past Anesthesia/Blood Transfusion Reaction / Comment(s): pt states she has never had a blood transfusion, no reactions to anesthesia Past Psychological History: No Psychological Hx Reported Smoking Status: Never smoker Past Alcohol Use History: Rare Past Drug Use History: None Reported - Past Family History Mother Additional Family Medical History / Comment(s): alzheimers, CABG Father Additional Family Medical History / Comment(s): smoker, alcohol. Medications and Allergies Home Medications Medication Instructions Recorded Confirmed Type Aspirin EC [Ecotrin Low Dose] 81 mg PO HS 04/06/16 02/28/18 History Multivitamins, Thera [Multivitamin] 1 tab PO DAILY 04/06/16 02/28/18 History Atorvastatin Calcium [Lipitor] 10 mg PO HS 02/28/18 02/28/18 History Azithromycin [Zithromax Z-pack] See Taper PO DAILY 02/28/18 02/28/18 History Losartan [Cozaar] 50 mg PO AC-SUPPER 02/28/18 02/28/18 History amLODIPine [Norvasc] 2.5 mg PO AC-SUPPER 02/28/18 02/28/18 History Allergies Allergy/AdvReac Type Severity Reaction Status Date / Time Penicillins Allergy Rash/Hives Verified 02/28/18 22:48 Sulfa (Sulfonamide Allergy Rash/Hives Verified 02/28/18 22:48 Antibiotics) Physical Exam Vitals: Vital Signs Temp Pulse Pulse Resp BP BP Pulse Ox 03/01/18 04:35 104 H 17 108/58 98 03/01/18 03:58 99 17 03/01/18 02:08 98.3 F 102 H 17 144/83 98 03/01/18 02:02 98.1 F 99 18 164/83 97 03/01/18 00:21 101 H 16 160/89 98 03/01/18 00:00 106 H 16 168/106 98 02/28/18 22:30 154/93 02/28/18 22:17 16 97 02/28/18 22:16 98.3 F 117 H 20 154/94 98 Intake and Output 02/28/18 02/28/18 03/01/18 14:59 22:59 06:59 Other: Voiding Method Toilet Weight 87.543 kg 86.8 kg Constitutional: No acute distress, conversant, pleasant Eyes: Anicteric sclerae, moist conjunctiva, no lid-lag, PERRLA ENMT: NC/AT,Oropharynx clear, no erythema, exudates Neck:Supple, FROM, no masses, or JVD, No carotid bruits; No thyromegaly Lungs: Clear to auscultation, Clear to percussion, Normal respiratory effort, no accessory muscle use Cardiovascular: Heart regular in rate and rhythm, No murmurs, gallops, or rubs no peripheral edema Abdominal: Soft Nontender, nom distended, no guarding, no rebound or rigidity, Normoactive bowel sounds No hepatomegaly, No splenomegaly, No palpable mass No abdominal wall hernia noted Skin: Normal temperature, tone, texture, turgor, No induration No subcutaneous nodules, No rash, lesions, No ulcers Extremities:No digital cyanosis No clubbing, Pedal pulses intact and symmetrical Radial pulses intact and symmetrical Normal gait and station, No calf tenderness Psychiatric: Alert and oriented to person, place and time, Appropriate affect Intact judgement Neuro: Muscles Strength 5/5 in all 4 extremities, Sensation to light touch grossly present throughout, Cranial nerves II-XII grossly intact. No focal sensory deficits Results CBC & Chem 7: 02/28/18 22:35 02/28/18 22:35 Labs: Abnormal Lab Results - Last 24 Hours (Table) 02/28/18 Range/Units 22:35 Glucose 117 H (74-99) mg/dL Alkaline Phosphatase 127 H (38-126) U/L Thrombosis Risk Factor Assmnt - Choose All That Apply Any of the Below Risk Factors Present?: Yes Each Factor Represents 1 point: Oral contraceptives or hormone replacement therapy Other Risk Factors: Yes Each Risk Factor Represents 2 Points: Age 61-74 years Other congenital or acquired thrombophilia - If yes, enter type in comment: No Thrombosis Risk Factor Assessment Total Risk Factor Score: 3 Thrombosis Risk Factor Assessment Level: Moderate Risk Assessment and Plan (1) TIA (transient ischemic attack) Current Visit: Yes Status: Acute Code(s): G45.9 - TRANSIENT CEREBRAL ISCHEMIC ATTACK, UNSPECIFIED SNOMED Code(s): 344214391 (2) Paresthesia of left upper extremity Current Visit: Yes Status: Acute Code(s): R20.2 - PARESTHESIA OF SKIN SNOMED Code(s): 18648022 (3) Accelerated hypertension Current Visit: Yes Status: Acute Code(s): I10 - ESSENTIAL (PRIMARY) HYPERTENSION SNOMED Code(s): 72123054 (4) Hyperlipidemia Current Visit: Yes Status: Acute Code(s): E78.5 - HYPERLIPIDEMIA, UNSPECIFIED SNOMED Code(s): 05151406 (5) Spell of change in speech Current Visit: Yes Status: Acute Code(s): R47.89 - OTHER SPEECH DISTURBANCES SNOMED Code(s): 49959345 Plan: The patient is admitted anticipated greater than 2 midnight stay after presenting with with symptoms of TIA with slurred speech and left upper extremity paresthesias which have since resolved prior to presenting to the ER. Patient does have ongoing coronary risk factors such as hypertension which was actually uncontrolled on presentation. CT angiography of the neck stenosis of the proximal basilar artery and possible occlusion of left posterior cerebral artery .The patient was given aspirin and Plavix recommended for admission with plans for further workup including consult to neurology, cardiology for JORGE ALBERTO. EEG showing normal sinus rhythm. Patient started on SCDs for DVT prophylaxis. Continue to follow clinical course Discussed plan of care: Patient Anticipated discharge : 1-2 days CODE STATUS: Full code
--- NOTE | 2018-03-01 10:54 | P.CRDCN ---
History of Present Illness Consult date: 03/01/18 Requesting physician: Daquan Sosa Reason for Consult (text): TIA Chief complaint: Bilateral hand weakness, bilateral leg weakness and some slurring of speech History of present illness: This is a 67-year-old female with past medical history significant for hypertension and hyperlipidemia who presents to the hospital with symptoms of bilateral hand numbness and weakness, bilateral leg weakness and slurring of speech. Patient states that both of her hands became tingly and numb, and she was unable to place a copy onto the table. She also states that both of her legs were weak and she felt as though she was unable to walk. She called 911 and states that her speech was somewhat slurred. Instructed by the forwarder operator to go and unlock the door, she did this and then brought her Upstairs at Which Time Her Symptoms Seemed to Have Completely Resolved. She Does State That She Had Recent Episode with Dizziness and Had a Balance Test Done by Dr. Jamal Jamison. She Denies Any Recent Fever or Chills, Denies Any Prior History of Stroke in the past. Patient Does State That She Was Recently Started on Zithromax and Dose Adjustments Have Been Made in Her Blood Pressure Medication. Patient Did Have a Cardiolite Stress Test in February of Last Year Which Was Negative for Any Reversible Ischemia. CAT scan of the brain did not reveal any acute intracranial findings. CTA of the head and neck was negative. Her EKG showed a normal sinus rhythm with no acute changes. Blood pressure 115/60 with a heart rate in the 80s, 97% on room air. White blood cell count 7.1, hemoglobin 12.7, platelet count 284. Sodium 139, potassium 4.0, BUN 12, creatinine 0.7. Troponin 0.012. At the time of my examination, patient feels well, no neuro deficits. Cardiology has been requested to see the patient because of symptoms, we've also been requested to perform a transesophageal echocardiographic study. Past Medical History Past Medical History: Hyperlipidemia, Hypertension Additional Past Medical History / Comment(s): TIA (03/01/18) History of Any Multi-Drug Resistant Organisms: None Reported Additional Past Surgical History / Comment(s): D&C Past Anesthesia/Blood Transfusion Reactions: No Reported Reaction Additional Past Anesthesia/Blood Transfusion Reaction / Comment(s): pt states she has never had a blood transfusion, no reactions to anesthesia Past Psychological History: No Psychological Hx Reported Smoking Status: Never smoker Past Alcohol Use History: Rare Past Drug Use History: None Reported - Past Family History Mother Additional Family Medical History / Comment(s): alzheimers, CABG Father Additional Family Medical History / Comment(s): smoker, alcohol. Medications and Allergies Home Medications Medication Instructions Recorded Confirmed Type Aspirin EC [Ecotrin Low Dose] 81 mg PO HS 04/06/16 02/28/18 History Multivitamins, Thera [Multivitamin] 1 tab PO DAILY 04/06/16 02/28/18 History Atorvastatin Calcium [Lipitor] 10 mg PO HS 02/28/18 02/28/18 History Azithromycin [Zithromax Z-pack] See Taper PO DAILY 02/28/18 02/28/18 History Losartan [Cozaar] 50 mg PO AC-SUPPER 02/28/18 02/28/18 History amLODIPine [Norvasc] 2.5 mg PO AC-SUPPER 02/28/18 02/28/18 History Allergies Allergy/AdvReac Type Severity Reaction Status Date / Time Penicillins Allergy Rash/Hives Verified 02/28/18 22:48 Sulfa (Sulfonamide Allergy Rash/Hives Verified 02/28/18 22:48 Antibiotics) Physical Exam Vitals: Vital Signs Temp Pulse Pulse Resp BP BP Pulse Ox 03/01/18 08:18 98 03/01/18 08:00 98.2 F 84 16 115/64 97 03/01/18 06:35 83 15 124/61 97 03/01/18 04:35 104 H 17 108/58 98 03/01/18 03:58 99 17 03/01/18 02:08 98.3 F 102 H 17 144/83 98 03/01/18 02:02 98.1 F 99 18 164/83 97 03/01/18 00:21 101 H 16 160/89 98 03/01/18 00:00 106 H 16 168/106 98 02/28/18 22:30 154/93 02/28/18 22:17 16 97 02/28/18 22:16 98.3 F 117 H 20 154/94 98 Intake and Output 02/28/18 03/01/18 03/01/18 22:59 06:59 14:59 Other: Voiding Method Toilet # Voids 1 Weight 87.543 kg 86.8 kg PHYSICAL EXAMINATION: GENERAL: 67-year-old female in no acute distress at the time of my examination HEENT: Head is atraumatic, normocephalic. Pupils equal, round. Sclera anicteric. Conjunctiva are clear. Mucous membranes of the mouth are moist. Neck is supple. There is no elevated jugular venous pressure. No carotid bruit is heard. HEART EXAMINATION: Heart S1, S2 normal. No murmur or gallop heard. CHEST EXAMINATION: Lungs are clear to auscultation and precussion. No chest wall tenderness is noted on palpation or with deep breathing. ABDOMEN: Soft, nontender. Bowel sounds are heard. No organomegaly noted. EXTREMITIES: 2+ peripheral pulses with no evidence of peripheral edema and no calf tenderness noted. NEUROLOGIC patient is awake, alert and oriented 3 . . Results 02/28/18 22:35 02/28/18 22:35 Cardiac Enzymes 02/28/18 02/28/18 Range/Units 22:35 22:35 AST 31 (14-36) U/L Troponin I <0.012 (0.000-0.034) ng/mL Coagulation 02/28/18 Range/Units 22:35 PT 9.6 (9.0-12.0) sec APTT 23.2 (22.0-30.0) sec CBC 02/28/18 Range/Units 22:35 WBC 7.1 (3.8-10.6) k/uL RBC 3.98 (3.80-5.40) m/uL Hgb 12.7 (11.4-16.0) gm/dL Hct 37.4 (34.0-46.0) % Plt Count 284 (150-450) k/uL Comprehensive Metabolic Panel 02/28/18 Range/Units 22:35 Sodium 139 (137-145) mmol/L Potassium 4.0 (3.5-5.1) mmol/L Chloride 104 (98-107) mmol/L Carbon Dioxide 23 (22-30) mmol/L BUN 12 (7-17) mg/dL Creatinine 0.70 (0.52-1.04) mg/dL Glucose 117 H (74-99) mg/dL Calcium 9.7 (8.4-10.2) mg/dL AST 31 (14-36) U/L ALT 40 (9-52) U/L Alkaline Phosphatase 127 H (38-126) U/L Total Protein 7.4 (6.3-8.2) g/dL Albumin 4.3 (3.5-5.0) g/dL Current Medications Generic Name Dose Route Start Last Admin Trade Name Freq PRN Reason Stop Dose Admin Amlodipine Besylate 2.5 mg 03/01/18 17:30 Norvasc PO AC-SUPPER ZION Aspirin 81 mg 03/02/18 09:00 Aspirin PO DAILY ZION Atorvastatin Calcium 10 mg 03/01/18 21:00 Lipitor PO HS ZION Clopidogrel Bisulfate 75 mg 03/01/18 09:00 Plavix PO DAILY ZION Sodium Chloride 1,000 mls @ 20 mls/hr 02/28/18 22:30 03/01/18 00:20 Saline 0.9% IV 20 mls/hr .Q24H ZION Administration Losartan Potassium 50 mg 03/01/18 17:30 Cozaar PO AC-SUPPER ZION Multivitamins 1 each 03/01/18 12:00 Theragran PO DAILY@1200 ZION Intake and Output 02/28/18 03/01/18 03/01/18 22:59 06:59 14:59 Other: Voiding Method Toilet # Voids 1 Weight 87.543 kg 86.8 kg 02/28/18 22:35 02/28/18 22:35 EKG Interpretations (text) EKG shows a normal sinus rhythm with no acute changes. Assessment and Plan Plan: Assessment and plan #1 symptoms of bilateral hand numbness and weakness, bilateral leg numbness and weakness and slurring of speech, rule out TIA. #2 hypertension #3 hyperlipidemia Plan We will obtain an echocardiogram with Doppler study. Continue to monitor for any atrial fibrillation. We will also perform a transesophageal echocardiographic study tomorrow. The benefits were explained to the patient in detail, further recommendations will be based on these findings and the patient's clinical course. DNP note has been reviewed, I agree with a documented findings and plan of care. Patient was seen and examined.
[2018-03-01] MEDS: CLOPIDOGREL 75 MG TAB PO SCH (11:22)
[2018-03-01] MEDS ORDERED: MULTIVITAMINS, THERA 1 EACH TAB PO SCH (12:00)
--- NOTE | 2018-03-01 12:24 | ECHOF ---
Referral Reason:Thrombus MEASUREMENTS -------- HEIGHT: 162.6 cm WEIGHT: 86.6 kg BP: 124/61 RVIDd: 2.8 cm (< 3.3) IVSd: 1.2 cm (0.6 - 1.1) LVIDd: 3.1 cm (3.9 - 5.3) LVPWd: 1.1 cm (0.6 - 1.1) IVSs: 1.5 cm LVIDs: 2.1 cm LVPWs: 1.6 cm LA Diam: 2.4 cm (2.7 - 3.8) LAESV Index (A-L): 27.82 ml/m Ao Diam: 3.8 cm (2.0 - 3.7) AV Cusp: 2.2 cm (1.5 - 2.6) MV EXCURSION: 16.074 mm (> 18.000) MV EF SLOPE: 62 mm/s (70 - 150) EPSS: 0.5 cm MV E Bishop: 0.85 m/s MV DecT: 290 ms MV A Bishop: 1.00 m/s MV E/A Ratio: 0.85 FINDINGS -------- Sinus rhythm. This was a technically good study. The left ventricular size is normal. There is borderline concentric left ventricular hypertrophy. Overall left ventricular systolic function is normal with, an EF between 55 - 60 %. The right ventricle is normal in size. Normal LA size by volume 22+/-6 ml/m2. The right atrial size is normal. The aortic valve is trileaflet and appears structurally normal. The mitral valve is normal. Mild mitral regurgitation is present. The tricuspid valve appears structurally normal. Trace/mild (physiologic) pulmonic regurgitation. The aortic root is dilated measuring 3.8cm. Normal inferior vena cava with normal inspiratory collapse consistent with estimated right atrial pre ssure of 5 mmHg. There is no pericardial effusion. CONCLUSIONS -------- 1. Sinus rhythm. 2. This was a technically good study. 3. The left ventricular size is normal. 4. There is borderline concentric left ventricular hypertrophy. 5. Overall left ventricular systolic function is normal with, an EF between 55 - 60 %. 6. Normal LA size by volume 22+/-6 ml/m2. 7. The right atrial size is normal. 8. The aortic valve is trileaflet and appears structurally normal. 9. The mitral valve is normal. 10. Mild mitral regurgitation is present. 11. The tricuspid valve appears structurally normal. 12. Trace/mild (physiologic) pulmonic regurgitation. 13. The aortic root is dilated measuring 3.8cm. 14. Normal inferior vena cava with normal inspiratory collapse consistent with estimated right atrial pressure of 5 mmHg. 15. There is no pericardial effusion. DISASTER RECOVERY ANALYST: Magy Amzequita RDCS
[2018-03-01] MEDS ORDERED: LOSARTAN 50 MG TAB PO SCH (17:30)
[2018-03-01] MEDS ORDERED: amLODIPine 2.5 MG TAB PO SCH (17:30)
[2018-03-01] MEDS ORDERED: ATORVASTATIN 10 MG TAB PO SCH (21:00)
--- NOTE | 2018-03-01 21:28 | P.CNNES ---
History of Present Illness Consult date: 03/01/18 History of Present Illness: The patient is a 67-year-old right-handed white female who states she was sitting in a chair with A Lap and Both Legs [place] Weak. She Was Sitting for about 1 Hour When This Happened. Both Hands Also [place] Weak. Her Speech Sounded Odd. She Called 911 and the Episode Lasted for about 5 Minutes. She Has No Previous History of Such Episodes. There Has Been No Recurrence of Speech Disturbance or Weakness in the Arms and Legs. She Had Gives a History of Dizziness Which Began in November. She Saw ENT and Had a ENG Test Done. She Reports That the Dizziness Has Improved. She Denied Any Double Vision. She Denied Any Loss of Balance , loss of Coordination ,or Falls. She Normally Takes Baby Aspirin but for the past Few Days She Has Not Been Taking Her Aspirin. Patient had a CT angiogram done in the emergency room which showed severe stenosis versus short segment occlusion of the proximal basilar artery. There was also possible occlusion of the distal left posterior cerebral artery. Evaluation was limited. Urgency room physician had contacted [facility] stroke neurologist who suggested no neurosurgical intervention at this time. The patient has been started on Plavix plus aspirin. She has been free of any further spells or episodes. X Review of Systems Constitutional: Denies chills, Denies fever Eyes: denies blurred vision, denies pain Ears, nose, mouth and throat: Denies headache, Denies sore throat Cardiovascular: Denies chest pain, Denies shortness of breath Respiratory: Denies cough Gastrointestinal: Denies abdominal pain, Denies diarrhea, Denies nausea, Denies vomiting Genitourinary: Denies dysuria, Denies hematuria Musculoskeletal: Reports as per HPI Neurological: Denies numbness, Denies weakness Psychiatric: Denies anxiety, Denies depression Past Medical History Past Medical History: Hyperlipidemia, Hypertension Additional Past Medical History / Comment(s): TIA (03/01/18) History of Any Multi-Drug Resistant Organisms: None Reported Additional Past Surgical History / Comment(s): D&C Past Anesthesia/Blood Transfusion Reactions: No Reported Reaction Additional Past Anesthesia/Blood Transfusion Reaction / Comment(s): pt states she has never had a blood transfusion, no reactions to anesthesia Past Psychological History: No Psychological Hx Reported Smoking Status: Never smoker Past Alcohol Use History: Rare Past Drug Use History: None Reported - Past Family History Mother Additional Family Medical History / Comment(s): alzheimers, CABG Father Additional Family Medical History / Comment(s): smoker, alcohol. Medications and Allergies Home Medications Medication Instructions Recorded Confirmed Type Aspirin EC [Ecotrin Low Dose] 81 mg PO HS 04/06/16 02/28/18 History Multivitamins, Thera [Multivitamin] 1 tab PO DAILY 04/06/16 02/28/18 History Atorvastatin Calcium [Lipitor] 10 mg PO HS 02/28/18 02/28/18 History Azithromycin [Zithromax Z-pack] See Taper PO DAILY 02/28/18 02/28/18 History Losartan [Cozaar] 50 mg PO AC-SUPPER 02/28/18 02/28/18 History amLODIPine [Norvasc] 2.5 mg PO AC-SUPPER 02/28/18 02/28/18 History Allergies Allergy/AdvReac Type Severity Reaction Status Date / Time Penicillins Allergy Rash/Hives Verified 02/28/18 22:48 Sulfa (Sulfonamide Allergy Rash/Hives Verified 02/28/18 22:48 Antibiotics) Physical Examination - Vital Signs Vital Signs: Vital Signs Temp Pulse Pulse Resp BP BP Pulse Ox 03/01/18 16:00 98.3 F 72 18 137/82 98 03/01/18 11:44 98.0 F 84 18 131/74 97 03/01/18 08:18 98 03/01/18 08:00 98.2 F 84 16 115/64 97 03/01/18 06:35 83 15 124/61 97 03/01/18 04:35 104 H 17 108/58 98 03/01/18 03:58 99 17 03/01/18 02:08 98.3 F 102 H 17 144/83 98 03/01/18 02:02 98.1 F 99 18 164/83 97 03/01/18 00:21 101 H 16 160/89 98 03/01/18 00:00 106 H 16 168/106 98 02/28/18 22:30 154/93 02/28/18 22:17 16 97 02/28/18 22:16 98.3 F 117 H 20 154/94 98 Intake and Output 03/01/18 03/01/18 03/01/18 06:59 14:59 22:59 Intake Total 240 240 Output Total 600 Balance -360 240 Intake: Oral 240 240 Output: Urine 600 Other: Voiding Method Toilet # Voids 1 Weight 86.8 kg - Constitutional General appearance: average body habitus - EENT EENT: PERRL - Respiratory Respiratory: lungs clear - Cardiovascular Cardiovascular: regular rate, normal S1, normal S2 - Integumentary Integumentary: normal - Neurologic Neurologic examination: Cranial nerve examination: Cranial nerves II through XII grossly intact Motor examination: 5 out of 5 throughout Sensory examination: Intact to light touch Deep tendon reflexes: 1+ and symmetric Gait: Not tested Results - Laboratory Findings CBC and BMP: 02/28/18 22:35 02/28/18 22:35 Abnormal Lab Findings: Abnormal Labs 02/28/18 22:35 Glucose 117 H Alkaline Phosphatase 127 H Assessment and Plan (1) Vertebrobasilar insufficiency Current Visit: Yes Status: Acute SNOMED Code(s): 591289123 Plan: Patient is a 67-year-old woman who presents to the hospital with recent history of vertigo and dizziness and acute onset bilateral arm and leg weakness. The episode lasted for 5 minutes. She has been asymptomatic since coming to the emergency room. She has been placed on aspirin and Plavix. CT of the brain did not show any acute findings. Her neurologic examination is nonfocal. 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 Recommend patient to continue Plavix plus baby aspirin. Recommend transfer to large stroke center for possible neuro intervention. Patient will need specialized CT not available at this facility. Patient may be a candidate for angioplasty versus clot retrieval device. Recommend transfer to [facility] stroke center or others large stroke center such as [place] . Continue close neuro checks.
[2018-03-02 06:53] LABS: Cholesterol 149 mg/dL (<200); HDL Cholesterol 77 mg/dL (40-60); LDL Cholesterol,Calculated 58 mg/dL (0-99); Triglycerides 71 mg/dL (<150)
[2018-03-02 07:41] VITALS: RESP 18
[2018-03-02] MEDS ORDERED: ASPIRIN 81 MG PO SCH (09:00)
[2018-03-02] MEDS ORDERED: ASPIRIN 325 MG TAB PO SCH (09:00)
[2018-03-02] MEDS: CLOPIDOGREL 75 MG TAB PO SCH (09:39)
--- NOTE | 2018-03-02 10:31 | P.DS ---
Providers Date of admission: 03/01/18 01:01 Expected date of discharge: 03/02/18 Attending physician: Daquan Sosa MD Consults: 03/01/18 01:36 Consult Physician Urgent Consulting Provider: George Mancia Consult Reason/Comments: TIA Do you want consulting provider notified?: Yes 03/01/18 06:39 Consult Physician Routine Consulting Provider: Rica Alanis Consult Reason/Comments: JORGE ALBERTO Do you want consulting provider notified?: Yes Primary care physician: Mago Braxton MD Hospital Course: The patient is a 67 yo F with the PMH of HTN and HLD who presented to the ED on 02/28/18 at 11 pm for L hand tingling, slurred speech, and sh[place] LE weakness. She had no prior hx of CVA or TIAs. She called EMS and by the time they arrived, her symptoms had resolved, lasting ~ 5 minutes. She was brought to the ED and had no recurrence of her symptoms. In the ED, she underwent a CT head w/o contrast which was unremarkable. CT Angiogram of the head and neck revealed severe stenosis vs short segment occlusion of the proximal basilar artery w/ possible occlusion of the distal L posterior cerebral artery. The patient was admitted for further w/u of TIA and was started on Aspirin, Plavix, and Statin. Echocardiogram showed LVEF 55-60% w/ borderline concentric LVH and no valvular abnormalities. The patient was evaluated by Neurology service who recommended to transfer the patient to a large stroke center for possible neuro intervention since patient will need specialized CT not available at this facility and that the patient may be a candidate for angioplasty vs clot retrieval. The patient was presented to [facility] w/ physician to physician discussion and was accepted to the Stroke Unit under Dr Diaz. The patient is aware and agreeable to the transfer. Physical Examination General: Awake, alert, in no acute distress HEENT: NC/AT, anicteric sclerae, moist conjunctiva, no lid-lag, PERRLA, oropharynx clear, no erythema, exudates Cardiovascular: S1/S2 wnl, no murmurs, rubs, or gallops Lungs: Clear to auscultation, normal respiratory effort, no accessory muscle use Abdominal: Soft, nontender, non-distended, no guarding, rebound, or rigidity, normoactive bowel sounds Skin: Warm, dry Extremities: No edema or contractures Psychiatric: Alert and oriented to person, place and time, appropriate affect, Intact judgment Neuro: CN II-XI grossly intact, Strength 5/5 throughout, no pronator drift, [id number] intact, gait normal, Sensation to light touch intact throughout Discharge diagnosis: TIA, severe stenosis of proximal basilar artery, 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 Pertinent Studies: CT Head w/o contrast: As above CT Angiogram of head and neck: As above Echocardiogram: As above Patient Condition at Discharge: Stable Plan - Discharge Summary Discharge Rx Participant: No New Discharge Prescriptions: New Clopidogrel [Plavix] 75 mg PO DAILY tab Continue Multivitamins, Thera [Multivitamin (formulary)] 1 tab PO DAILY Aspirin EC [Ecotrin Low Dose] 81 mg PO HS amLODIPine [Norvasc] 2.5 mg PO AC-SUPPER Losartan [Cozaar] 50 mg PO AC-SUPPER Atorvastatin Calcium [Lipitor] 10 mg PO HS Discontinued Azithromycin [Zithromax Z-pack] See Taper PO DAILY Discharge Medication List Aspirin EC [Ecotrin Low Dose] 81 mg PO HS 04/06/16 [History] Multivitamins, Thera [Multivitamin (formulary)] 1 tab PO DAILY 04/06/16 [History ] Atorvastatin Calcium [Lipitor] 10 mg PO HS 02/28/18 [History] Losartan [Cozaar] 50 mg PO AC-SUPPER 02/28/18 [History] amLODIPine [Norvasc] 2.5 mg PO AC-SUPPER 02/28/18 [History] Clopidogrel [Plavix] 75 mg PO DAILY tab 03/02/18 [Rx] Follow up Appointment(s)/Referral(s): Mago Braxton MD [Primary Care Provider] - 03/07/18 5:40 pm (Wednesday) Activity/Diet/Wound Care/Special Instructions: transfer to [facility] Discharge Disposition: OTHER INSTITUTION NOT DEFINED
[2018-03-02 11:29] VITALS: BP 158/69; PULSE 66; TEMP 97
--- NOTE | 2018-03-02 14:52 | P.PN ---
Subjective Progress Note Date: 03/02/18 This is a 67-year-old female with past medical history significant for hypertension and hyperlipidemia who presents to the hospital with symptoms of bilateral hand numbness and weakness, bilateral leg weakness and slurring of speech. Patient states that both of her hands became tingly and numb, and she was unable to place a copy onto the table. She also states that both of her legs were weak and she felt as though she was unable to walk. She called 911 and states that her speech was somewhat slurred. Instructed by the welding machine operator helper arc to go and unlock the door, she did this and then brought her Upstairs at Which Time Her Symptoms Seemed to Have Completely Resolved. She Does State That She Had Recent Episode with Dizziness and Had a Balance Test Done by Dr. Jamal Jamison. She Denies Any Recent Fever or Chills, Denies Any Prior History of Stroke in the past. Patient Does State That She Was Recently Started on Zithromax and Dose Adjustments Have Been Made in Her Blood Pressure Medication. Patient Did Have a Cardiolite Stress Test in February of Last Year Which Was Negative for Any Reversible Ischemia. CAT scan of the brain did not reveal any acute intracranial findings. CTA of the head and neck was negative. Her EKG showed a normal sinus rhythm with no acute changes. Blood pressure 115/60 with a heart rate in the 80s, 97% on room air. White blood cell count 7.1, hemoglobin 12.7, platelet count 284. Sodium 139, potassium 4.0, BUN 12, creatinine 0.7. Troponin 0.012. At the time of my examination, patient feels well, no neuro deficits. Cardiology has been requested to see the patient because of symptoms, we've also been requested to perform a transesophageal echocardiographic study. 03/02/2018 Patient was seen by neurology their recommendation is that she likely had an episode of VBI, and the recommendation is that she be transferred to [facility] today for possible neuro intervention. They recommend to continue the patient on a pix and baby aspirin. Objective - Vital Signs Vital signs: Vital Signs Temp 97.0 F L 03/02/18 11:27 Pulse 66 03/02/18 11:27 Resp 18 03/02/18 11:27 BP 158/69 03/02/18 11:27 Pulse Ox 95 03/02/18 11:27 Intake & Output 03/01/18 03/02/18 03/02/18 18:59 06:59 18:59 Intake Total 480 480 360 Output Total 600 Balance -120 480 360 Weight 85.2 kg Intake: Oral 480 480 360 Output: Urine 600 Other: Voiding Method Toilet # Voids 1 - Exam PHYSICAL EXAMINATION: GENERAL: 67-year-old female in no acute distress at the time of my examination HEENT: Head is atraumatic, normocephalic. Pupils equal, round. Sclera anicteric. Conjunctiva are clear. Mucous membranes of the mouth are moist. Neck is supple. There is no elevated jugular venous pressure. No carotid bruit is heard. HEART EXAMINATION: Heart S1, S2 normal. No murmur or gallop heard. CHEST EXAMINATION: Lungs are clear to auscultation and precussion. No chest wall tenderness is noted on palpation or with deep breathing. ABDOMEN: Soft, nontender. Bowel sounds are heard. No organomegaly noted. EXTREMITIES: 2+ peripheral pulses with no evidence of peripheral edema and no calf tenderness noted. NEUROLOGIC patient is awake, alert and oriented 3 . - Labs CBC & Chem 7: 02/28/18 22:35 02/28/18 22:35 Labs: Abnormal Lab Results - Last 24 Hours (Table) 03/02/18 Range/Units 06:05 HDL Cholesterol 77 H (40-60) mg/dL Assessment and Plan Plan: Assessment and plan #1 symptoms of bilateral hand numbness and weakness, bilateral leg numbness and weakness and slurring of speech, rule out TIA. #2 hypertension #3 hyperlipidemia Plan Echocardiogram with Doppler study revealed a normal left ventricular systolic function. Arrangements are being made for the patient to transfer to [facility] for possible neuro intervention. We will follow along with you now on an as-needed basis only, please don't hesitate to call with any questions. DNP note has been reviewed, I agree with a documented findings and plan of care. Patient was seen and examined.
== END 2018-03-02 15:12 | disposition short-term general hospital (02) | DRG 68 ==
LOC: EC 22:11 → 3SCARD 03-01 01:01 → OBSVTOIN 03-01 16:10
PROVIDERS: ADMIT Family Medicine; ATTEND Family Medicine
DX: I65.1 Occlusion and stenosis of basilar artery (principal); R40.2142 Coma scale, eyes open, spontaneous, at arrival to emergency department; R40.2362 Coma scale, best motor response, obeys commands, at arrival to emergency department; R40.2252 Coma scale, best verbal response, oriented, at arrival to emergency department; I10 Essential (primary) hypertension; E78.5 Hyperlipidemia, unspecified; Z79.82 Long term (current) use of aspirin; Z79.899 Other long term (current) drug therapy; Z88.0 Allergy status to penicillin; Z88.2 Allergy status to sulfonamides; Z82.0 Family history of epilepsy and other diseases of the nervous system; Z82.49 Family history of ischemic heart disease and other diseases of the circulatory system; Z81.2 Family history of tobacco abuse and dependence; Z81.1 Family history of alcohol abuse and dependence
CPT/HCPCS: 36415; 70450; 70496; 70498; 80053; 80061; 84484; 85025; 85610; 85730; 93005; 93306; 99285

== ENCOUNTER 2018-05-18 09:46 | Emergency (ER) | payer MEDICARE ==
[2018-05-18 09:57] VITALS: RESP 18
[2018-05-18] MEDS ORDERED: SODIUM CHLORIDE 0.9% 500 ML 500 ML IV STA (10:32)
[2018-05-18] MEDS ORDERED: SODIUM CHLORIDE 0.9% 1,000 ML IV STA (10:32)
--- NOTE | 2018-05-18 10:54 | ED ---
Syncope HPI - General Chief Complaint: Syncope Stated Complaint: SNCOPE, FALL DOWN 7 STAIRS Time Seen by Provider: 05/18/18 10:00 Source: patient, RN notes reviewed Mode of arrival: wheelchair Limitations: no limitations - History of Present Illness Initial Comments: This is a 67-year-old female who has had syncopal episodes in the past who states he had a go the bathroom got a bed very fast and passed out briefly. She states she didn't get off the toilet really fast after she was done and passed out falling backwards down 7 steps. She denies any back pain she has complaints of pain to the left buttock area and hip area. She states this is happened in the past when she gets out of bed and gets up too quickly. At this time feels normal her friend confirms that she's acting totally normal at this time. She denies any palpitations fevers chills nausea vomiting sweats cough focal weakness or other symptoms. He does complain dyspnea some slight left- sided neck pain. No other modifying factors she is on aspirin and Plavix. MD Complaint: loss of consciousness - Related Data Home Medications Medication Instructions Recorded Confirmed Multivitamins, Thera [Multivitamin 1 tab PO DAILY 04/06/16 05/18/18 (formulary)] Aspirin 325 mg PO DAILY 05/18/18 05/18/18 Atorvastatin [Lipitor] 80 mg PO HS 05/18/18 05/18/18 Hydrochlorothiazide 12.5 mg PO DAILY 05/18/18 05/18/18 Losartan Potassium [Cozaar] 100 mg PO AC-SUPPER 05/18/18 05/18/18 Previous Rx's Medication Instructions Recorded Clopidogrel [Plavix] 75 mg PO DAILY tab 03/02/18 Allergies Allergy/AdvReac Type Severity Reaction Status Date / Time Penicillins Allergy Rash/Hives Verified 05/18/18 10:20 Sulfa (Sulfonamide Allergy Rash/Hives Verified 05/18/18 10:20 Antibiotics) Review of Systems ROS Statement: Those systems with pertinent positive or pertinent negative responses have been documented in the HPI. ROS Other: All systems not noted in ROS Statement are negative. Past Medical History Past Medical History: Hyperlipidemia, Hypertension Additional Past Medical History / Comment(s): TIA (03/01/18) History of Any Multi-Drug Resistant Organisms: None Reported Additional Past Surgical History / Comment(s): D&C Past Anesthesia/Blood Transfusion Reactions: No Reported Reaction Additional Past Anesthesia/Blood Transfusion Reaction / Comment(s): pt states she has never had a blood transfusion, no reactions to anesthesia Past Psychological History: No Psychological Hx Reported Smoking Status: Never smoker Past Alcohol Use History: Rare Past Drug Use History: None Reported - Past Family History Mother Additional Family Medical History / Comment(s): alzheimers, CABG Father Additional Family Medical History / Comment(s): smoker, alcohol. General Exam - General Exam Comments Initial Comments: This a well-developed well-nourished awake alert oriented 3 female she does demonstrate a [place] Coma Scale of 15 Limitations: no limitations General appearance: alert, in no apparent distress Head exam: Present: atraumatic, normocephalic, normal inspection Eye exam: Present: normal appearance, PERRL, EOMI. Absent: scleral icterus, conjunctival injection, periorbital swelling ENT exam: Present: mucous membranes dry Neck exam: Present: normal inspection, tenderness (Mild tenderness palpation of the left lateral neck musculature no spinous process tenderness). Absent: meningismus, lymphadenopathy Respiratory exam: Present: normal lung sounds bilaterally. Absent: respiratory distress, wheezes, rales, rhonchi, stridor Cardiovascular Exam: Present: regular rate, normal rhythm, normal heart sounds. Absent: systolic murmur, diastolic murmur, rubs, gallop, clicks GI/Abdominal exam: Present: soft, normal bowel sounds. Absent: distended, tenderness, guarding, rebound, rigid Extremities exam: Present: full ROM, tenderness (Tennis palpation of left hip and gluteus muscle or is ecchymosis noted over this area consistent with a hematoma from the fall. Also patient does demonstrate kyphosis.), normal capillary refill. Absent: pedal edema, joint swelling, calf tenderness Back exam: Present: normal inspection Neurological exam: Present: alert, oriented X3, CN II-XII intact Psychiatric exam: Present: normal affect, normal mood Skin exam: Present: warm, dry, intact, normal color. Absent: rash Course Vital Signs 05/18/18 09:53 Temperature 98.1 F Pulse Rate 85 Respiratory 18 Rate Blood Pressure 153/81 O2 Sat by Pulse 100 Oximetry EKG Findings - EKG Results: EKG: interpreted by LEROY, sinus rhythm (Sinus rhythm of 83. Interval 172 QRS duration 88 QT since QTC 396/[address]-T wave changes.) Medical Decision Making - Medical Decision Making Reevaluation patient finds that she is awake alert oriented 3 with a [place] Coma Scale self 15 no symptoms the presentation is consistent with a orthostatic episode. Patient be discharged is follow-up with her doctor return when necessary we did discuss of bruising and how to care for it. - Lab Data Result diagrams: 05/18/18 10:47 05/18/18 10:47 Lab Results 05/18/18 05/18/18 05/18/18 Range/Units 10:37 10:47 10:47 WBC 11.9 H (3.8-10.6) k/uL RBC 4.07 (3.80-5.40) m/uL Hgb 13.3 (11.4-16.0) gm/dL Hct 38.0 (34.0-46.0) % MCV 93.5 (80.0-100.0) fL MCH 32.8 (25.0-35.0) pg MCHC 35.0 (31.0-37.0) g/dL RDW 12.6 (11.5-15.5) % Plt Count 219 (150-450) k/uL Neutrophils % 86 % Lymphocytes % 6 % Monocytes % 6 % Eosinophils % 0 % Basophils % 0 % Neutrophils # 10.3 H (1.3-7.7) k/uL Lymphocytes # 0.7 L (1.0-4.8) k/uL Monocytes # 0.7 (0-1.0) k/uL Eosinophils # 0.1 (0-0.7) k/uL Basophils # 0.0 (0-0.2) k/uL PT (9.0-12.0) sec INR (<1.2) APTT (22.0-30.0) sec Sodium (137-145) mmol/L Potassium (3.5-5.1) mmol/L Chloride (98-107) mmol/L Carbon Dioxide (22-30) mmol/L Anion Gap mmol/L BUN (7-17) mg/dL Creatinine (0.52-1.04) mg/dL Est GFR (CKD-EPI)AfAm (>60 ml/min/1.73 sqM) Est GFR (CKD-EPI)NonAf (>60 ml/min/1.73 sqM) Glucose (74-99) mg/dL Calcium (8.4-10.2) mg/dL Magnesium (1.6-2.3) mg/dL Total Bilirubin (0.2-1.3) mg/dL AST (14-36) U/L ALT (9-52) U/L Alkaline Phosphatase (38-126) U/L Total Creatine Kinase 71 (30-135) U/L CK-MB (CK-2) 4.9 H (0.0-2.4) ng/mL CK-MB (CK-2) Rel Index 6.9 Troponin I <0.012 (0.000-0.034) ng/mL Total Protein (6.3-8.2) g/dL Albumin (3.5-5.0) g/dL Urine Color Light Yellow Urine Appearance Clear (Clear) Urine pH 6.0 (5.0-8.0) Ur Specific [place] 1.006 (1.001-1.035) Urine Protein Negative (Negative) Urine Glucose (UA) Negative (Negative) Urine Ketones Negative (Negative) Urine Blood Negative (Negative) Urine Nitrite Negative (Negative) Urine Bilirubin Negative (Negative) Urine Urobilinogen <2.0 (<2.0) mg/dL Ur Leukocyte Esterase Negative (Negative) 05/18/18 05/18/18 Range/Units 10:47 10:47 WBC (3.8-10.6) k/uL RBC (3.80-5.40) m/uL Hgb (11.4-16.0) gm/dL Hct (34.0-46.0) % MCV (80.0-100.0) fL MCH (25.0-35.0) pg MCHC (31.0-37.0) g/dL RDW (11.5-15.5) % Plt Count (150-450) k/uL Neutrophils % % Lymphocytes % % Monocytes % % Eosinophils % % Basophils % % Neutrophils # (1.3-7.7) k/uL Lymphocytes # (1.0-4.8) k/uL Monocytes # (0-1.0) k/uL Eosinophils # (0-0.7) k/uL Basophils # (0-0.2) k/uL PT 9.7 (9.0-12.0) sec INR 0.9 (<1.2) APTT 22.8 (22.0-30.0) sec Sodium 133 L (137-145) mmol/L Potassium 3.6 (3.5-5.1) mmol/L Chloride 96 L (98-107) mmol/L Carbon Dioxide 25 (22-30) mmol/L Anion Gap 12 mmol/L BUN 8 (7-17) mg/dL Creatinine 0.71 (0.52-1.04) mg/dL Est GFR (CKD-EPI)AfAm >90 (>60 ml/min/1.73 sqM) Est GFR (CKD-EPI)NonAf 88 (>60 ml/min/1.73 sqM) Glucose 115 H (74-99) mg/dL Calcium 9.2 (8.4-10.2) mg/dL Magnesium 1.9 (1.6-2.3) mg/dL Total Bilirubin 0.7 (0.2-1.3) mg/dL AST 50 H (14-36) U/L ALT 57 H (9-52) U/L Alkaline Phosphatase 104 (38-126) U/L Total Creatine Kinase (30-135) U/L CK-MB (CK-2) (0.0-2.4) ng/mL CK-MB (CK-2) Rel Index Troponin I (0.000-0.034) ng/mL Total Protein 7.0 (6.3-8.2) g/dL Albumin 4.2 (3.5-5.0) g/dL Urine Color Urine Appearance (Clear) Urine pH (5.0-8.0) Ur Specific [place] (1.001-1.035) Urine Protein (Negative) Urine Glucose (UA) (Negative) Urine Ketones (Negative) Urine Blood (Negative) Urine Nitrite (Negative) Urine Bilirubin (Negative) Urine Urobilinogen (<2.0) mg/dL Ur Leukocyte Esterase (Negative) - Radiology Data Radiology results: report reviewed (I did review the imaging and reports no acute findings.), image reviewed Disposition Clinical Impression: Vasovagal syncope, Syncope due to orthostatic hypotension, Pelvic contusion Disposition: HOME SELF-CARE Condition: Good Instructions (If sedation given, give patient instructions): Syncope (ED), Dehydration (ED) Is patient prescribed a controlled substance at d/c from ED?: No Referrals: Mago Braxton MD [Primary Care Provider] - 1-2 days
[2018-05-18 11:05] LABS: Basophils % (A) 0 %; Eosinophils # (A) 0.1 k/uL (0-0.7); Eosinophils % (A) 0 %; HGB 13.3 gm/dL (11.4-16.0); Lymphocytes # (A) 0.7 k/uL (1.0-4.8); Lymphocytes % (A) 6 %; MCH 32.8 pg (25.0-35.0); MCV 93.5 fL (80.0-100.0); Mean Platelet Volume 6.6; Monocytes # (A) 0.7 k/uL (0-1.0); Monocytes % (A) 6 %; Neutrophils # (A) 10.3 k/uL (1.3-7.7); Neutrophils % (A) 86 %; Platelet Count 219 k/uL (150-450); RBC 4.07 m/uL (3.80-5.40); RDW 12.6 % (11.5-15.5); WBC 11.9 k/uL (3.8-10.6)
[2018-05-18 11:13] LABS: INR 0.9 (<1.2); Partial Thromboplastin Time 22.8 sec (22.0-30.0); Prothrombin Time 9.7 sec (9.0-12.0)
[2018-05-18 11:21] LABS: ALT 57 U/L (9-52); AST 50 U/L (14-36); Albumin 4.2 g/dL (3.5-5.0); Alkaline Phosphatase 104 U/L (38-126); Anion Gap 12 mmol/L; Blood Urea Nitrogen 8 mg/dL (7-17); Calcium 9.2 mg/dL (8.4-10.2); Carbon Dioxide 25 mmol/L (22-30); Chloride 96 mmol/L (98-107); Glucose 115 mg/dL (74-99); Magnesium 1.9 mg/dL (1.6-2.3); Potassium 3.6 mmol/L (3.5-5.1); Sodium 133 mmol/L (137-145); Total Bilirubin 0.7 mg/dL (0.2-1.3)
--- NOTE | 2018-05-18 11:22 | CT ---
EXAMINATION TYPE: CT brain celiaine wo con DATE OF EXAM: 05/18/2018 COMPARISON: 03/28/2018 HISTORY: Syncope, fell down stairs. Head and neck pain. CT DLP: 1383.7 mGycm. Automated Exposure Control for Dose Reduction was Utilized. TECHNIQUE: CT scan of the head and cervical spine are performed without contrast. FINDINGS: There is no acute intracranial hemorrhage, mass effect, or midline shift identified. No s uspicious extra-axial fluid collection is present. There is leftward nasal septal deviation. The vent ricles and sulci are within normal limits in size. The globes are intact and the visualized sinuses are clear. Cervical spine is visualized in its entirety from C1 through upper thoracic levels and demonstrates s atisfactory alignment without evidence of acute fracture or dislocation. Prevertebral soft tissue ap pears within normal limits. Facet arthropathy is most pronounced at C3-C4 with degenerative change th roughout the cervical spine that is overall moderate degree present from C3 through C6. Small posteri or disc osteophyte complexes seen at C5-C6. There is degenerative narrowing of the atlantodental inte rval. The C1-C2 articulation is unremarkable. Patchy groundglass opacities at the lung apices may re present fluid overload or atelectasis. Minimal emphysematous changes are present. Incidental note is made of a bovine aortic arch. IMPRESSION: 1. There is no acute fracture or dislocation evident in the cervical spine. 2. No acute intracranial hemorrhage, mass effect, or midline shift is seen. 3. Moderate multilevel degenerative disc disease of the cervical spine. 4. Patchy groundglass opacities at the lung apices may represent sequela of fluid overload or atelect asis. Pneumonitis is considered less likely.
[2018-05-18 11:34] LABS: Appearance,Urine Clear (Clear); Bilirubin,Urine Negative (Negative); Blood,Urine Negative (Negative); Color,Urine Light Yellow; Glucose,Urine (UA) Negative (Negative); Ketones,Urine Negative (Negative); Leukocyte Esterase,Urine Negative (Negative); Nitrite,Urine Negative (Negative); Protein,Urine Negative (Negative); Specific Gravity,Urine 1.006 (1.001-1.035); Urobilinogen,Urine <2.0 mg/dL (<2.0)
[2018-05-18 11:37] LABS: Creatine Kinase 71 U/L (30-135)
--- NOTE | 2018-05-18 11:37 | XR ---
EXAMINATION TYPE: XR chest 2V DATE OF EXAM: 05/18/2018 COMPARISON: 04/14/2017 INDICATION: Syncope, fall TECHNIQUE: Frontal and lateral views of the chest are obtained. FINDINGS: The heart size is normal. The pulmonary vasculature is normal. The lungs are clear. Mediastinum appears normal. No pneumothorax is evident. IMPRESSION: 1. No acute pulmonary process.
--- NOTE | 2018-05-18 11:42 | XR ---
EXAMINATION TYPE: XR pelvis AP view DATE OF EXAM: 05/18/2018 COMPARISON: None HISTORY: Pain, fall from syncope TECHNIQUE: AP pelvis FINDINGS: Femoral heads articulate with the acetabulum. Symphysis pubis and sacroiliac joints are nor mal. No acute fractures are evident. Normal bowel gas is present. IMPRESSION: 1. Normal AP pelvis
[2018-05-18 11:50] LABS: Creatine Kinase MB 4.9 ng/mL (0.0-2.4); Troponin I <0.012 ng/mL (0.000-0.034)
[2018-05-18 13:00] VITALS: BP 133/72; PULSE 88; TEMP 98
== END 2018-05-18 13:00 | disposition home or self-care (01) ==
LOC: EC 09:46
DX: S30.0XXA Contusion of lower back and pelvis, initial encounter (principal); I95.1 Orthostatic hypotension; M54.2 Cervicalgia; E78.5 Hyperlipidemia, unspecified; I10 Essential (primary) hypertension; Z86.73 Personal history of transient ischemic attack (TIA), and cerebral infarction without residual deficits; Z79.82 Long term (current) use of aspirin; Z79.899 Other long term (current) drug therapy; Z88.0 Allergy status to penicillin; Z88.2 Allergy status to sulfonamides; W10.9XXA Fall (on) (from) unspecified stairs and steps, initial encounter; Y92.009 Unspecified place in unspecified non-institutional (private) residence as the place of occurrence of the external cause
CPT/HCPCS: 36415; 70450; 71046; 72125; 72170; 80053; 81003; 82550; 82553; 83735; 84484; 85025; 85610; 85730; 93005; 96360; 96361; 99284

== ENCOUNTER → 2018-07-07 | Outpatient (CLI) | payer MEDICARE ==
--- NOTE | 2018-07-08 11:40 | MM ---
Reason for exam: screening (asymptomatic). Last mammogram was performed 1 year ago. History: Patient is postmenopausal and is nulliparous. Benign left US cyst aspiration of the left breast, June 06, 2010. Benign excisional biopsy of the left breast, April 05, 1998. Cyst aspiration of the left breast. Took estrogen for 1 year beginning at age 46. Took progesterone for 1 year beginning at age 46. Physical Findings: A clinical breast exam by your physician is recommended on an annual basis and results should be correlated with mammographic findings. MG 3D Screening Mammo W/Cad Bilateral CC and MLO view(s) were taken. Prior study comparison: July 06, 2017, bilateral MG 3d screening mammo w/cad. June 23, 2016, bilateral MG 3d screening mammo w/cad. The breast tissue is heterogeneously dense. This may lower the sensitivity of mammography. No suspicious abnormality. Left biopsy marker. No significant changes when compared with prior studies. ASSESSMENT: Benign, BI-RAD 2 RECOMMENDATION: Routine screening mammogram of both breasts in 1 year.
== END | disposition home or self-care (01) ==
LOC: RADMAMWWP 09:16
PROVIDERS: ATTEND Family Medicine
DX: Z12.31 Encounter for screening mammogram for malignant neoplasm of breast (principal)
CPT/HCPCS: 77063; 77067

== ENCOUNTER 2018-08-16 13:31 | Emergency (ER) | payer MEDICARE ==
[2018-08-16] MEDS ORDERED: SODIUM CHLORIDE 0.9% 1,000 ML IV STA (15:00)
[2018-08-16] MEDS ORDERED: ONDANSETRON 4 MG/2 ML VIAL IVP STA (15:00)
--- NOTE | 2018-08-16 15:08 | ED ---
Weakness HPI - General Chief complaint: Weakness Stated complaint: feels odd, face fees swollen Time Seen by Provider: 08/16/18 15:00 Source: patient, RN notes reviewed, old records reviewed Mode of arrival: ambulatory Limitations: no limitations - History of Present Illness Initial comments: This is a 67-year-old female the ER for multiple nonspecific complaints. Patient admits to nausea no vomiting began upon awakening this afternoon or this morning. Symptoms of been episodic throughout the day. Some tingling in bilateral upper extremities bilateral legs. No abdominal pain. Patient is without fever. Symptoms again is started today with no prior history of similar complaint. No surgical history of her abdomen noted. No chest pain or tim rtness of breath, no diaphoresis. No recent change in medications. Patient currently is still having same paresthesia-type symptoms, episodic in nature. Patient denies any significant weakness or decrease in sensation MD Complaint: generalized weakness, numbness, tingling -: hour(s) Location: LUE, RUE, LLE, RLE Severity: mild Severity scale (1-10): 3 Quality: tingling, numbness Consistency: intermittent Improves with: none Worsens with: none Associated Symptoms: nausea/vomiting - Related Data Home Medications Medication Instructions Recorded Confirmed Multivitamins, Thera [Multivitamin 1 tab PO DAILY 04/06/16 08/16/18 (formulary)] Aspirin 325 mg PO DAILY 05/18/18 08/16/18 Atorvastatin [Lipitor] 80 mg PO HS 05/18/18 08/16/18 Hydrochlorothiazide 12.5 mg PO DAILY 05/18/18 08/16/18 Losartan Potassium [Cozaar] 100 mg PO AC-SUPPER 05/18/18 08/16/18 Allergies Allergy/AdvReac Type Severity Reaction Status Date / Time Penicillins Allergy Rash/Hives Verified 08/16/18 15:17 Sulfa (Sulfonamide Allergy Rash/Hives Verified 08/16/18 15:17 Antibiotics) Review of Systems ROS Statement: Those systems with pertinent positive or pertinent negative responses have been documented in the HPI. ROS Other: All systems not noted in ROS Statement are negative. Past Medical History Past Medical History: Hyperlipidemia, Hypertension Additional Past Medical History / Comment(s): TIA (03/01/18) History of Any Multi-Drug Resistant Organisms: None Reported Additional Past Surgical History / Comment(s): D&C Past Anesthesia/Blood Transfusion Reactions: No Reported Reaction Additional Past Anesthesia/Blood Transfusion Reaction / Comment(s): pt states she has never had a blood transfusion, no reactions to anesthesia Past Psychological History: No Psychological Hx Reported Smoking Status: Never smoker Past Alcohol Use History: Rare Past Drug Use History: None Reported - Past Family History Mother Additional Family Medical History / Comment(s): alzheimers, CABG Father Additional Family Medical History / Comment(s): smoker, alcohol. General Exam - General Exam Comments Initial Comments: NIH of 0 Limitations: no limitations General appearance: alert, in no apparent distress Head exam: Present: atraumatic, normocephalic, normal inspection Eye exam: Present: normal appearance, PERRL, EOMI. Absent: scleral icterus, conjunctival injection, periorbital swelling ENT exam: Present: normal exam, mucous membranes moist Neck exam: Present: normal inspection. Absent: tenderness, meningismus, lymphadenopathy Respiratory exam: Present: normal lung sounds bilaterally. Absent: respiratory distress, wheezes, rales, rhonchi, stridor Cardiovascular Exam: Present: regular rate, normal rhythm, normal heart sounds. Absent: systolic murmur, diastolic murmur, rubs, gallop, clicks GI/Abdominal exam: Present: soft, normal bowel sounds. Absent: distended, tenderness, guarding, rebound, rigid Extremities exam: Present: normal inspection, full ROM, normal capillary refill. Absent: tenderness, pedal edema, joint swelling, calf tenderness Back exam: Present: normal inspection Neurological exam: Present: alert, oriented X3, CN II-XII intact Psychiatric exam: Present: normal affect, normal mood Skin exam: Present: warm, dry, intact, normal color. Absent: rash Course Vital Signs 08/16/18 08/16/18 13:52 17:47 Temperature 97.4 F L 98.3 F Pulse Rate 71 78 Respiratory 20 18 Rate Blood Pressure 187/98 164/80 O2 Sat by Pulse 99 100 Oximetry - Reevaluation(s) Reevaluation #1: Medical record is reviewed Patient states her symptoms are improved, she currently has no complaints Patient's feeling of bowel pain with no tenderness on exam EKG Findings - EKG Comments: EKG Findings:: EKG shows sinus rhythm rate of 70, OH 160, QRS 70, QTc 440 Medical Decision Making - Medical Decision Making 67 female the ER for evaluation. Patient presents today for nausea and not feeling well. Patient has normal troponins. Symptoms began when patient awoke this morning. No others findings, lab values and imaging is negative - Lab Data Result diagrams: 08/16/18 15:30 08/16/18 15:30 Lab Results 08/16/18 08/16/18 08/16/18 Range/Units 15:30 15:30 15:30 WBC 6.0 (3.8-10.6) k/uL RBC 4.08 (3.80-5.40) m/uL Hgb 13.0 (11.4-16.0) gm/dL Hct 37.5 (34.0-46.0) % MCV 91.8 (80.0-100.0) fL MCH 31.9 (25.0-35.0) pg MCHC 34.7 (31.0-37.0) g/dL RDW 12.7 (11.5-15.5) % Plt Count 248 (150-450) k/uL Neutrophils % 74 % Lymphocytes % 17 % Monocytes % 5 % Eosinophils % 1 % Basophils % 0 % Neutrophils # 4.5 (1.3-7.7) k/uL Lymphocytes # 1.1 (1.0-4.8) k/uL Monocytes # 0.3 (0-1.0) k/uL Eosinophils # 0.1 (0-0.7) k/uL Basophils # 0.0 (0-0.2) k/uL PT (9.0-12.0) sec INR (<1.2) APTT (22.0-30.0) sec Sodium 137 (137-145) mmol/L Potassium 3.8 (3.5-5.1) mmol/L Chloride 101 (98-107) mmol/L Carbon Dioxide 25 (22-30) mmol/L Anion Gap 11 mmol/L BUN 11 (7-17) mg/dL Creatinine 0.61 (0.52-1.04) mg/dL Est GFR (CKD-EPI)AfAm >90 (>60 ml/min/1.73 sqM) Est GFR (CKD-EPI)NonAf >90 (>60 ml/min/1.73 sqM) Glucose 99 (74-99) mg/dL Calcium 9.9 (8.4-10.2) mg/dL Phosphorus 3.9 (2.5-4.5) mg/dL Magnesium 2.1 (1.6-2.3) mg/dL Total Bilirubin 0.5 (0.2-1.3) mg/dL AST 54 H (14-36) U/L ALT 77 H (9-52) U/L Alkaline Phosphatase 218 H (38-126) U/L Troponin I (0.000-0.034) ng/mL NT-Pro-B Natriuret Pep 82 pg/mL Total Protein 7.3 (6.3-8.2) g/dL Albumin 4.3 (3.5-5.0) g/dL Urine Color Urine Appearance (Clear) Urine pH (5.0-8.0) Ur Specific [place] (1.001-1.035) Urine Protein (Negative) Urine Glucose (UA) (Negative) Urine Ketones (Negative) Urine Blood (Negative) Urine Nitrite (Negative) Urine Bilirubin (Negative) Urine Urobilinogen (<2.0) mg/dL Ur Leukocyte Esterase (Negative) 08/16/18 08/16/18 08/16/18 Range/Units 15:30 15:30 15:30 WBC (3.8-10.6) k/uL RBC (3.80-5.40) m/uL Hgb (11.4-16.0) gm/dL Hct (34.0-46.0) % MCV (80.0-100.0) fL MCH (25.0-35.0) pg MCHC (31.0-37.0) g/dL RDW (11.5-15.5) % Plt Count (150-450) k/uL Neutrophils % % Lymphocytes % % Monocytes % % Eosinophils % % Basophils % % Neutrophils # (1.3-7.7) k/uL Lymphocytes # (1.0-4.8) k/uL Monocytes # (0-1.0) k/uL Eosinophils # (0-0.7) k/uL Basophils # (0-0.2) k/uL PT 9.6 (9.0-12.0) sec INR 0.9 (<1.2) APTT 23.9 (22.0-30.0) sec Sodium (137-145) mmol/L Potassium (3.5-5.1) mmol/L Chloride (98-107) mmol/L Carbon Dioxide (22-30) mmol/L Anion Gap mmol/L BUN (7-17) mg/dL Creatinine (0.52-1.04) mg/dL Est GFR (CKD-EPI)AfAm (>60 ml/min/1.73 sqM) Est GFR (CKD-EPI)NonAf (>60 ml/min/1.73 sqM) Glucose (74-99) mg/dL Calcium (8.4-10.2) mg/dL Phosphorus (2.5-4.5) mg/dL Magnesium (1.6-2.3) mg/dL Total Bilirubin (0.2-1.3) mg/dL AST (14-36) U/L ALT (9-52) U/L Alkaline Phosphatase (38-126) U/L Troponin I <0.012 (0.000-0.034) ng/mL NT-Pro-B Natriuret Pep pg/mL Total Protein (6.3-8.2) g/dL Albumin (3.5-5.0) g/dL Urine Color Colorless Urine Appearance Clear (Clear) Urine pH 6.5 (5.0-8.0) Ur Specific [place] 1.003 (1.001-1.035) Urine Protein Negative (Negative) Urine Glucose (UA) Negative (Negative) Urine Ketones Negative (Negative) Urine Blood Negative (Negative) Urine Nitrite Negative (Negative) Urine Bilirubin Negative (Negative) Urine Urobilinogen <2.0 (<2.0) mg/dL Ur Leukocyte Esterase Negative (Negative) - Radiology Data Radiology results: report reviewed (CT brain is negative for acute disease), image reviewed Disposition Clinical Impression: Nausea, Weakness Disposition: HOME SELF-CARE Condition: Good Instructions (If sedation given, give patient instructions): Acute Nausea and Vomiting (ED) Is patient prescribed a controlled substance at d/c from ED?: No Referrals: Mago Braxton MD [Primary Care Provider] - 1-2 days
[2018-08-16 15:43] LABS: Appearance,Urine Clear (Clear); Basophils % (A) 0 %; Bilirubin,Urine Negative (Negative); Blood,Urine Negative (Negative); Color,Urine Colorless; Eosinophils # (A) 0.1 k/uL (0-0.7); Eosinophils % (A) 1 %; Glucose,Urine (UA) Negative (Negative); HCT 37.5 % (34.0-46.0); Ketones,Urine Negative (Negative); Leukocyte Esterase,Urine Negative (Negative); Lymphocytes # (A) 1.1 k/uL (1.0-4.8); Lymphocytes % (A) 17 %; MCH 31.9 pg (25.0-35.0); MCHC 34.7 g/dL (31.0-37.0); MCV 91.8 fL (80.0-100.0); Monocytes # (A) 0.3 k/uL (0-1.0); Monocytes % (A) 5 %; Neutrophils # (A) 4.5 k/uL (1.3-7.7); Neutrophils % (A) 74 %; Nitrite,Urine Negative (Negative); PH, Urine 6.5 (5.0-8.0); Platelet Count 248 k/uL (150-450); Protein,Urine Negative (Negative); RBC 4.08 m/uL (3.80-5.40); RDW 12.7 % (11.5-15.5); Specific Gravity,Urine 1.003 (1.001-1.035); Urobilinogen,Urine <2.0 mg/dL (<2.0)
[2018-08-16 15:53] LABS: Potassium 3.8 mmol/L (3.5-5.1)
[2018-08-16 15:54] LABS: ALT 77 U/L (9-52); AST 54 U/L (14-36); Albumin 4.3 g/dL (3.5-5.0); Alkaline Phosphatase 218 U/L (38-126); Anion Gap 11 mmol/L; Blood Urea Nitrogen 11 mg/dL (7-17); Calcium 9.9 mg/dL (8.4-10.2); Carbon Dioxide 25 mmol/L (22-30); Chloride 101 mmol/L (98-107); Glucose 99 mg/dL (74-99); Magnesium 2.1 mg/dL (1.6-2.3); Phosphorus 3.9 mg/dL (2.5-4.5); Sodium 137 mmol/L (137-145); Total Bilirubin 0.5 mg/dL (0.2-1.3); Total Protein 7.3 g/dL (6.3-8.2)
[2018-08-16 16:01] LABS: INR 0.9 (<1.2); Partial Thromboplastin Time 23.9 sec (22.0-30.0); Prothrombin Time 9.6 sec (9.0-12.0)
--- NOTE | 2018-08-16 16:38 | CT ---
EXAMINATION TYPE: CT brain wo con DATE OF EXAM: 08/16/2018 COMPARISON: 05/18/2018 HISTORY: Face swelling and feels out of sorts. History of TIA CT DLP: 1129.4 mGycm Automated exposure control for dose reduction was used. FINDINGS: There is no mass effect nor midline shift. There is no sign of intracranial hemorrhage. Ventricles stoner ve normal size. The calvarium is intact. IMPRESSION: NEGATIVE CT SCAN OF THE BRAIN. NO CHANGE.
[2018-08-16 17:48] VITALS: BP 164/80; PULSE 78; RESP 18; TEMP 98.3
== END 2018-08-16 17:58 | disposition home or self-care (01) ==
LOC: EC 13:31
DX: R53.1 Weakness (principal); R11.0 Nausea; R20.2 Paresthesia of skin; E78.5 Hyperlipidemia, unspecified; I10 Essential (primary) hypertension; Z79.82 Long term (current) use of aspirin; Z79.899 Other long term (current) drug therapy; Z86.73 Personal history of transient ischemic attack (TIA), and cerebral infarction without residual deficits; Z88.0 Allergy status to penicillin; Z88.2 Allergy status to sulfonamides; Z53.29 Procedure and treatment not carried out because of patient's decision for other reasons
CPT/HCPCS: 36415; 70450; 80053; 81003; 83735; 83880; 84100; 84484; 85025; 85610; 85730; 96360; 96361; 99285

== ENCOUNTER → 2019-09-07 | Outpatient (CLI) | payer MEDICARE ==
[2019-09-07 09:34] LABS: Basophils % (A) 1 %; Eosinophils # (A) 0.1 k/uL (0-0.7); Eosinophils % (A) 1 %; HCT 38.8 % (34.0-46.0); HGB 12.9 gm/dL (11.4-16.0); Lymphocytes # (A) 0.9 k/uL (1.0-4.8); Lymphocytes % (A) 22 %; MCHC 33.2 g/dL (31.0-37.0); MCV 96.3 fL (80.0-100.0); Mean Platelet Volume 7.2; Monocytes # (A) 0.4 k/uL (0-1.0); Monocytes % (A) 9 %; Neutrophils # (A) 2.5 k/uL (1.3-7.7); Neutrophils % (A) 63 %; Platelet Count 205 k/uL (150-450); RBC 4.03 m/uL (3.80-5.40); RDW 12.4 % (11.5-15.5)
[2019-09-07 16:47] LABS: ALT 32 U/L (8-44); AST 35 U/L (13-35); African American GFR (CKD) 86.6 (60.0-200.0); Alkaline Phosphatase 96 U/L (41-126); BUN/Creat Ratio 11.25 Ratio (12.00-20.00); Calcium 9.5 mg/dL (8.7-10.3); Chloride 104 mmol/L (96-109); Chol/HDL Ratio 1.78; Cholesterol 135 mg/dL (0-200); Glucose 89 mg/dL (70-110); Non-African American GFR(CKD) 74.7 (60.0-200.0); Potassium 3.9 mmol/L (3.5-5.5); Sodium 140 mmol/L (135-145); Total Bilirubin 0.6 mg/dL (0.3-1.2); Total Protein 6.2 g/dL (6.2-8.2); Triglycerides <50.0 mg/dL (0.0-149.0)
== END | disposition home or self-care (01) ==
LOC: LABWHC1 08:03
PROVIDERS: ATTEND Internal Medicine
DX: Z00.00 Encounter for general adult medical examination without abnormal findings (principal); I10 Essential (primary) hypertension; E78.2 Mixed hyperlipidemia
CPT/HCPCS: 36415; 80053; 80061; 84443; 85025

== ENCOUNTER → 2022-11-04 | Outpatient (CLI) | payer MEDICARE ==
[2022-11-04 17:14] LABS: HCT 37.2 % (37.2-46.3); HGB 12.8 d/dL (12.0-15.0); MCHC 34.4 d/dL (32.0-37.0); MCV 95.9 FL (80.0-97.0); Mean Platelet Volume 10.3 FL (9.5-12.2); NRBC Per 100 WBC 0 X 10*3/uL (0.00-0.01); Platelet Count 227 X 10*3/uL (140-440); RBC 3.88 X 10*6/uL (4.10-5.20); RDW 12.6 % (11.5-14.5); WBC 5.37 X 10*3/uL (4.50-10.00)
[2022-11-04 17:33] LABS: Blood Urea Nitrogen 9.5 mg/dL (9.0-27.0); Carbon Dioxide 26.5 mmol/L (21.6-31.8); Chloride 99 mmol/L (96-109); Potassium 3.4 mmol/L (3.5-5.5); Sodium 137 mmol/L (135-145)
== END | disposition home or self-care (01) ==
LOC: LABPAT 09:23
PROVIDERS: ATTEND Internal Medicine Interventional Cardiology
DX: Z01.812 Encounter for preprocedural laboratory examination (principal); R07.9 Chest pain, unspecified
CPT/HCPCS: 80051; 82565; 84520; 85027

== ENCOUNTER 2022-11-10 10:04 | Day surgery (SDC) | payer MEDICARE ==
[2022-11-03 14:25] VITALS: BMI 30.9
[~2022-11-10 10:04] MED LIST: ALPRAZolam 0.25 MG TAB PO PRN; ALPRAZolam 0.5 MG TAB PO PRN; ASPIRIN 325 MG TAB PO ONE; NITROGLYCERIN SL TABS 0.4 MG TAB SUBLINGUAL PRN
[2022-11-10] MEDS ORDERED: SODIUM CHLORIDE 0.9% 1,000 ML IV ONE (10:13)
[2022-11-10] MEDS ORDERED: LIDOCAINE 1% INJ 10MG/ML (5 ML VIAL-PF) SQ ONE (12:43)
[2022-11-10] MEDS ORDERED: MIDAZOLAM 2 MG/2 ML VIAL IVP ONE (12:50)
[2022-11-10] MEDS ORDERED: VERAPAMIL SYRINGE (5 MG/10 ML) INTRAARTER ONE (12:50)
[2022-11-10] MEDS: HEPARIN SODIUM 1,000 UN/ML (10ML VL) IV ONE ×4 (12:51→14:10)
[2022-11-10] MEDS ORDERED: CLOPIDOGREL 75 MG TAB PO ONE (13:07)
[2022-11-10] MEDS ORDERED: fentaNYL (PF) 50 MCG/ML 2 ML AMP ONE (13:27)
[2022-11-10] MEDS ORDERED: fentaNYL (PF) 50 MCG/1 ML VIAL IVP ONE (13:29)
[2022-11-10] MEDS ORDERED: IOPAMIDOL-370 100ML BTL INJ ONE ×2 (13:48→14:04)
[2022-11-10] MEDS ORDERED: MECLIZINE 25 MG TAB PO PRN (14:08)
[2022-11-10] MEDS ORDERED: FAMOTIDINE 20 MG TAB PO PRN (14:08)
[2022-11-10] MEDS ORDERED: NITROGLYCERIN SL TABS 0.4 MG TAB SUBLINGUAL PRN (14:09)
[2022-11-10] MEDS ORDERED: MAG HYDROX/AL HYDROX/SIMETH 30 ML CUP PO PRN (14:09)
[2022-11-10] MEDS ORDERED: ATROPINE SULFATE 0.1 MG/ML 10ML SYRINGE IV PRN (14:09)
[2022-11-10] MEDS ORDERED: ZOLPIDEM 5 MG TAB PO PRN (14:09)
[2022-11-10] MEDS ORDERED: RX INFO: IV CONTRAST WAS GIVEN 1 EACH MISC MISCELLANE PRN (14:09)
[2022-11-10] MEDS ORDERED: SODIUM CHLORIDE 0.9% 1,000 ML in EMPTY BAG 1 BAG IV SCH (14:15)
--- NOTE | 2022-11-10 14:16 | P.PCN ---
Date of Procedure: 11/10/22 Operative Findings: CARDIAC CATHETERIZATION AND PERCUTANEOUS CORONARY INTERVENTION PERFORMING PHYSICIAN: Tree Bustos MD, [facility] PROCEDURE PERFORMED: 1. Selective right and left coronary angiogram 2. Left heart catheterization 3. Successful stenting of the heavily calcified mid RCA using 3.5 x 28 mm Xience CHILANGO with an excellent angiographic results 4. Adjunctive use of intravascular ultrasound and lithotripsy balloon 5. Ultrasound-guided access of the right radial artery INDICATION: Chest discomfort in this 71-year-old female patient was underwent a stress test that revealed ischemia COMPLICATION: None APPROACH: Right radial artery LEVEL OF SEDATION: Moderate with the sedation time off 64 minutes PROCEDURE DESCRIPTION: After obtaining an informed consent the patient was brought to the cardiac laborer plumbing. The right radial artery was cannulated using micropuncture technique under ultrasound guidance; puncture wire passed easily then I placed 6-Occitan sheath at the right radial artery. I gave the patient 2 mg of verapamil intra- arterial. After that I did selective right and left coronary angiogram using JR4 and JL 3.5 catheters. After that I did intervene on the right coronary artery. The procedure was completed was no complication. SELECTIVE CORONARY ANGIOGRAM: The right coronary artery: Large-caliber vessel and heavily calcified vessel was a critical disease in the midportion Left main: Is angiographically normal. Bifurcates into an LCx and LAD The left circumflex: Moderate caliber vessel nondominant vessel appears to have mild disease only. The left anterior descending artery: Large caliber vessel. The proximal LAD has mild disease only. Gives rises into a diagonal which appeared to have mild disease only. The mid LAD gives rise into a second diagonal which appeared to have mild disease only and the LAD in the midportion has a lesion appeared to be in the range of 30%. PCI OF THE the RCA: Anticoagulation was initiated using heparin with continuous ACT monitoring. Attempting engaging the RCA using an ART guide was unsuccessful. Finally I was able to engage the RCA using JR4 guiding catheter. I did wire it using a run- through wire and to anchor the guide better I did use of other run-through wire as a jose wire. I decided to do shockwave balloon of the RCA but because the RCA is heavily calcified the shockwave balloon would not the liver before predilated. I predilated using 2.5 mm noncompliant balloon. There was a napkin ring on the balloon. After that I advanced intravascular ultrasound which tim wed a diameter of the RCA and all 3.5 mm with calcified RCA. I did after that I tried to advance a shockwave balloon but the balloon would not delivered to the mid RCA. At that point I attempted advancing the balloon using guide liner and that was unsuccessful. Finally I pulled one of the run-through wire and I used an Ironman. With that I was able to advance a shockwave balloon to the mid RCA were I did PTCA ballooning of the RCA in the midportion. After that I was able to deliver 3.5 x 28 mm stent where the stent was positioned under fluoroscopy guidance and deployed under 14 anabel. Postdilatation was performed using 3.75 mm noncompliant balloon. Final angiogram showed good angiographic results and the procedure was completed was no complication. CONCLUSION: Critical disease involving the mid RCA which is heavily calcified. I did perform successful balloon angioplasty and stenting of the RCA POSTPROCEDURE MANAGEMENT: 1. Dual antiplatelet therapy using aspirin and Plavix for 12 month 2. Aggressive cholesterol control 3. Follow-up with the patient
[2022-11-10] MEDS ORDERED: LOSARTAN 50 MG TAB PO SCH (17:30)
[2022-11-10] MEDS: SODIUM CHLORIDE 0.9% 1,000 ML in EMPTY BAG 1 BAG IV SCH ×2 (18:08→18:52)
[2022-11-10] MEDS: CALCIUM CARB-VIT D 500 MG-5 MCG TAB PO SCH (20:04)
[2022-11-10] MEDS ORDERED: ATORVASTATIN 80 MG TAB PO SCH (21:00)
[2022-11-10 21:53] VITALS: RESP 18
[2022-11-11] MEDS: SODIUM CHLORIDE 0.9% 1,000 ML in EMPTY BAG 1 BAG IV SCH (06:32)
[2022-11-11 08:36] VITALS: BP 98/61; PULSE 97; TEMP 98.4
[2022-11-11] MEDS ORDERED: NON FORMULARY DRUG (Ubidecarenone [Co Q-10] 400 MG Capsule) PO SCH (09:00)
[2022-11-11] MEDS ORDERED: ASPIRIN 325 MG TAB PO SCH (09:00)
[2022-11-11] MEDS ORDERED: MULTIVITAMINS, THERA 1 EACH TAB PO SCH (09:00)
[2022-11-11] MEDS ORDERED: CHOLECALCIFEROL 25 MCG (1000 IU) TABLET PO SCH (09:00)
[2022-11-11] MEDS ORDERED: hydroCHLOROthiazide 12.5 MG CAP PO SCH (09:00)
[2022-11-11] MEDS ORDERED: CLOPIDOGREL 75 MG TAB PO SCH (09:00)
[2022-11-11] MEDS ORDERED: EZETIMIBE 10 MG TAB PO SCH (09:00)
[2022-11-11 09:05] LABS: Basophils % (A) 0 %; Eosinophils # (A) 0.1 k/uL (0-0.7); Eosinophils % (A) 1 %; HCT 35.2 % (34.0-46.0); HGB 12.1 gm/dL (11.4-16.0); Lymphocytes # (A) 0.4 k/uL (1.0-4.8); Lymphocytes % (A) 7 %; MCH 32.9 pg (25.0-35.0); MCHC 34.3 g/dL (31.0-37.0); MCV 95.9 fL (80.0-100.0); Mean Platelet Volume 7.7; Monocytes # (A) 0.4 k/uL (0-1.0); Monocytes % (A) 7 %; Neutrophils # (A) 3.9 k/uL (1.3-7.7); Neutrophils % (A) 81 %; Platelet Count 178 k/uL (150-450); RBC 3.68 m/uL (3.80-5.40); WBC 4.8 k/uL (3.8-10.6)
[2022-11-11 09:18] LABS: African American GFR (CKD) >90 (>60 ml/min/1.73 sqM); Anion Gap 8 mmol/L; Blood Urea Nitrogen 9 mg/dL (7-17); Carbon Dioxide 22 mmol/L (22-30); Chloride 105 mmol/L (98-107); Glucose 139 mg/dL (74-99); Non-African American GFR(CKD) 82 (>60 ml/min/1.73 sqM); Potassium 3.2 mmol/L (3.5-5.1); Sodium 135 mmol/L (137-145)
[2022-11-11] MEDS: CALCIUM CARB-VIT D 500 MG-5 MCG TAB PO SCH (09:21)
== END 2022-11-11 09:50 | disposition home or self-care (01) ==
LOC: CATHCVL 10:04 → 3SCARD 14:04 → CATHCVL 11-11 09:50
PROVIDERS: ATTEND Internal Medicine Interventional Cardiology
DX: Y84.0 Cardiac catheterization as the cause of abnormal reaction of the patient, or of later complication, without mention of misadventure at the time of the procedure (principal)
CPT/HCPCS: 92978; 93454; 0715T; 80048; 84132; 85025; C1769 ×6; C9600; C1887 ×3; C1894; C1725 ×4; C1753; C1874; C1761; J2250; J2001; J1644; Q9967; J3010